=== PATIENT | male | born 1930 | race Caucasian/White ===

== ENCOUNTER → 2016-07-03 | Outpatient (CLI) | payer MEDICARE, OTHER ==
[~2016-07-03] MED LIST: ASPI-557 PO; CLOP75TA PO; INSU100V13 SQ; INSU100V8 SQ; INSU3INS3 SQ; LISI-625 PO; METF500T4 PO; METO25TA6 PO; OMEG1CAP79 PO; ONDA4TAB10 PO; PANT40TA27 PO; RANI150T12 PO; SIMV20TA6 PO; SUCR1TAB PO; VIT1CAPS21 PO; [UNRECOGNIZED DRUG - CODE] PO; [UNRECOGNIZED DRUG - REMARK]
--- NOTE | 2016-07-03 10:48 | DI ---
Indication: ITS.REASON: M25.511 PAIN IN RIGHT SHOULDER; M25.521 PAIN IN RIGHT ELBOW PROCEDURE: SHOULDER RIGHT 3 VIEWS: Encounter: Initial Comparison: None Findings: There is no acute fracture, dislocation or malalignment identified. Mild degenerative change in the acromioclavicular joint. Glenohumeral joint space is maintained. Calcifications along the expected region of the supraspinatus tendon. Impression: No acute osseous abnormality. Possible calcific tendinitis. .
--- NOTE | 2016-07-03 10:50 | DI ---
Indication: ITS.REASON: M25.511 PAIN IN RIGHT SHOULDER; M25.521 PAIN IN RIGHT ELBOW PROCEDURE: ELBOW RIGHT 3 VIEW: Encounter: Initial Comparison: None Findings: There is cortical irregularity of the lateral humeral epicondyle seen on the AP view. No additional area concerning for acute fracture. No dislocation. No joint effusion. Impression: Cortical irregularity of the lateral humeral epicondyle could be due to acute or old trauma. .
== END ==
LOC: IMA 10:08
PROVIDERS: ATTEND Internal Medicine
DX: M25.511 Pain in right shoulder (principal); M25.512 Pain in left shoulder; R93.7 Abnormal findings on diagnostic imaging of other parts of musculoskeletal system

== ENCOUNTER 2017-02-10 18:18 | Observation (INO) ==
[2017-02-10] MEDS ORDERED: SALINE FLUSH 10ml SYRINGE IVF PRN (18:38)
--- OUTSIDE RECORDS SUMMARY | 2017-02-10 18:46 | External Medical Summary ---
:1930 Author Organization [employer] Care Team Providers Name Role Phone Nathan Arnold Provider Role Unavailable Allergies No Known Allergies Problems Problem Type Condition Code Onset Dates Condition Status Problem Anemia, unspecified D64.9 Active Problem Coronary atherosclerosis of 414.00 Active unspecified type of vessel, [place] or graft Problem Hypertension, benign 401.1 Active Problem Type 2 diabetes mellitus without E11.9 Active complications Problem Spinal stenosis, lumbar region M48.06 Active Problem Gastro-esophageal reflux disease K21.9 Active without esophagitis Problem Pain in right ankle and joints of M25.571 Active right foot Problem Mixed hyperlipidemia 272.2 Active Problem Mixed hyperlipidemia 272.2 Active Problem Atherosclerotic heart disease of I25.10 Active [place] coronary artery without angina pectoris Problem Diabetes Mellitus Type 2, not 250.00 Active stated as uncontrolled Medications Medication Code Code Instructions Start End Date Status Dosage System Date Simvastatin [facility] 57780147202 20 MG Orally 1 tablet in Once a day the evening Results No Known Results Summary Purpose [employer] Submission
--- OUTSIDE RECORDS SUMMARY | 2017-02-10 18:46 | External Medical Summary ---
:1930 Author Organization [employer]Clinical[employer] Care Team Providers Name Role Phone Nathan Arnold Provider Role Unavailable Allergies No Known Allergies Problems Problem Type Condition Code Onset Dates Condition Status Problem Anemia, unspecified D64.9 Active Problem Coronary atherosclerosis of 414.00 Active unspecified type of vessel, [place] or graft Problem Hypertension, benign 401.1 Active Problem Type 2 diabetes mellitus without E11.9 Active complications Problem Spinal stenosis, lumbar region M48.06 Active Problem Gastro-esophageal reflux disease K21.9 Active without esophagitis Problem Pain in right ankle and joints of M25.571 Active right foot Problem Mixed hyperlipidemia 272.2 Active Problem Mixed hyperlipidemia 272.2 Active Problem Atherosclerotic heart disease of I25.10 Active [place] coronary artery without angina pectoris Problem Diabetes Mellitus Type 2, not 250.00 Active stated as uncontrolled Medications Medication Code System Code Instructions Start Date End Date Status Dosage Protonix [facility] [address] 40 MG Orally Once June 26, 1 tablet -81 a day 2015 Results No Known Results Summary Purpose [facility] [employer] Submission
--- OUTSIDE RECORDS SUMMARY | 2017-02-10 18:46 | External Medical Summary ---
:1930 Author Organization eClinicalWorks Care Team Providers Name Role Phone Nathan Arnold Provider Role Unavailable Allergies, Adverse Reactions, Alerts Substance Reaction Event Type N.K.D.A. 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 Problem Coronary atherosclerosis of 414.00 Active unspecified type of vessel, [place] or graft Problem Hypertension, benign 401.1 Active Medications Medication Code Code Instructions Start End Date Status [place] [address]21 100 MG Orally Nov 03, Dec 01, 1 capsule as - Three times a 2014 2014 needed day as needed for cough/[place] [address]-85 20 MG Orally 1 tablet in 54-10 Once [place] [address]-84 500 MG Orally 1 tablet 48-01 [place] [address]-48 325 (65 Fe) MG 1 tablet 75-78 Orally Once [place] 70/30 [place] [address]-86 (70-30) 100 15 units 37-11 UNIT/ML [place] [address]-97 108 (90 Base) Nov 03, 1 to 2 puffs 82-20 MCG/ACT 2014 as needed Inhalation every for 6 hrs cough/wheezi ng/[place] [address]-19 100 UNIT/ML Oct 11, 5 units 39-10 Subcutaneous TID 2014 [place] [address]-54 5 MG Orally Once 1 tablet 05-01 [place] [address]-45 40 MG Orally 1 capsule 12-01 Once a day FreeStyle Lite [facility] 79144-03 1 In Vitro four Oct 05, as directed Test 819 times a day 2014 ABC Plus [facility] 87201-10 Orally not defined 070 Lantus [facility] 42581-84 100 UNIT/ML 20 units 20-33 Subcutaneous [place] [address]-21 750 MG Orally Nov 03, Nov 08, 1 tablet 30-10 every 24 hrs 2014 2014 Fish Oil [facility] 39511-89 1000 MG Orally 1 capsule 71-40 Once a day Clopidogrel [facility] 14905-71 75 MG Orally Sep 29, 1 tablet Bisulfate 14-05 Once a day 2014 Aspirin [facility] 63998-04 81 MG Orally 1 tablet 74-68 Once a day Lisinopril [facility] 66293-26 5 MG Orally Once 1 tablet 66-01 a day Ocuvite [facility] 95865-13 Orally not defined 87-60 Procedures Procedure Coding System Code Date OFFICE VISIT, EST-MOD. COMPLEXITY (25 MIN) CPT-4 15885 Nov 03, 2014 [facility] visit Established Patient CPT-4 G0467 Nov 03, 2014 Vital Signs Date/Time: Nov 03, 2014 Height 69 in Weight 157.12 lbs Temperature 97.6 F Blood Pressure Diastolic 58 mm Hg Blood Pressure Systolic 114 mm Hg Cardiac Monitoring Heart Rate 70 /min BMI 23.20 Index Oximetry 98 % Respiratory Rate 16 /min Results No Known Results Summary Purpose [employer]ClinicalWorks Submission
--- OUTSIDE RECORDS SUMMARY | 2017-02-10 18:46 | External Medical Summary ---
:1930 Author Organization eClinicalWorks Care Team Providers Name Role Phone Nathan Arnold Provider Role Unavailable Allergies No Known Allergies Problems Problem Type Condition Code Onset Dates Condition Status Problem Anemia, unspecified D64.9 Active Problem Coronary atherosclerosis of 414.00 Active unspecified type of vessel, [place] or graft Problem Hypertension, benign 401.1 Active Problem Type 2 diabetes mellitus without E11.9 Active complications Problem Spinal stenosis, lumbar region M48.06 Active Problem Gastro-esophageal reflux disease K21.9 Active without esophagitis Problem Pain in right ankle and joints of M25.571 Active right foot Problem Mixed hyperlipidemia 272.2 Active Problem Mixed hyperlipidemia 272.2 Active Problem Atherosclerotic heart disease of I25.10 Active [place] coronary artery without angina pectoris Problem Diabetes Mellitus Type 2, not 250.00 Active stated as uncontrolled Medications Medication Code Code Instructions Start End Status Dosage System Date Date Ventolin HFA [facility] [address]-75 108 (90 Base) Nov 03, 1 to 2 MCG/ACT 2014 puffs as Inhalation needed for every 6 hrs cough/wheez ing/soa. Fish Oil [facility] [address]-30 1000 MG Orally 1 capsule Once a day Metoprolol [facility] [address]-06 25 MG Orally 1 tablet Tartrate Once a day Gabapentin [facility] [address]-43 300 MG Orally 1 capsule Three times a day Ocuvite [facility] [address]-78 Orally not defined Lantus [facility] [address]-32 100 UNIT/ML Sep 22, 10 units SoloStar Subcutaneous 2015 Once a day NovoLog [facility] [address]-32 100 UNIT/ML Oct 11, up to 12 Flexpen Subcutaneous 2014 units per TID with meals day as DX E11.9 directed Simvastatin [facility] 61182667740 20 MG Orally 1 tablet in Once a day the evening Protonix [facility] [address]-01 40 MG Orally June 26, 1 tablet Once a day 2015 Metformin HCl [facility] [address]-29 500 MG Orally 2 tablets Once a day in the am and 1 tablet in the pm Ondansetron [facility] [address]-48 4 MG Orally not defined Aspirin [facility] [address]-13 81 MG Orally 1 tablet Once a day Lisinopril [facility] [address]-32 5 MG Orally 1 tablet Once a day FreeStyle Lite [facility] 26044691300 TEST BLOOD Test SUGAR 2 TIMES DAILY DIRECTED - E11.65 Ferrous [facility] [address]-82 325 (65 Fe) MG 1 tablet Sulfate Orally Once a day Clopidogrel [facility] [address]-48 75 MG Orally Sep 29, 1 tablet Bisulfate Once a day 2014 ABC Plus [facility] [address]37 Orally not defined Lantus [facility] 58922853754 100 UNIT/ML INJECT 20U AT BEDTIME Results No Known Results Summary Purpose [employer]ClinicalWorks Submission
--- OUTSIDE RECORDS SUMMARY | 2017-02-10 18:46 | External Medical Summary ---
:1930 Author Organization eClinicalWorks Care Team Providers Name Role Phone Nathan Arnold Provider Role Unavailable Allergies No Known Allergies Problems Problem Type Condition Code Onset Dates Condition Status Problem Anemia, unspecified D64.9 Active Problem Coronary atherosclerosis of 414.00 Active unspecified type of vessel, [place] or graft Problem Hypertension, benign 401.1 Active Problem Type 2 diabetes mellitus without E11.9 Active complications Problem Spinal stenosis, lumbar region M48.06 Active Problem Gastro-esophageal reflux disease K21.9 Active without esophagitis Problem Pain in right ankle and joints of M25.571 Active right foot Problem Mixed hyperlipidemia 272.2 Active Problem Mixed hyperlipidemia 272.2 Active Problem Atherosclerotic heart disease of I25.10 Active [place] coronary artery without angina pectoris Problem Diabetes Mellitus Type 2, not 250.00 Active stated as uncontrolled Medications No Known Medications Results No Known Results Summary Purpose [employer]ClinicalWorks Submission
--- OUTSIDE RECORDS SUMMARY | 2017-02-10 18:46 | External Medical Summary ---
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
--- OUTSIDE RECORDS SUMMARY | 2017-02-10 18:46 | External Medical Summary ---
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 Problem Hematemesis, K92.0 Active 2008794 presence of nausea not specified ALLERGIES No Information SOCIAL HISTORY Never Assessed PLAN OF CARE VITAL SIGNS MEDICATIONS Medication Instructions Dosage Frequency Start End Duration Status Date Date Metformin HCl 12h Active Lidocaine Active Simvastatin 20 Orally Once a 1 tablet in 24h Active MG day the evening NovoLog 100 Subcutaneous ac 12 units Active UNIT/ML meals Fish Oil 1200 MG Orally Once a 1 capsule 24h Active day Ranitidine HCl Orally Once a 1 tablet at 24h Jan, day(s) Active 150 MG day bedtime 2016 Clopidogrel Orally Once a 1 tablet 24h Active Bisulfate 75 MG day Lantus 100 18 units am Active UNIT/ML 6 units pm Iron 325 (65 Fe) Orally Once a 1 tablet 24h Active MG day Carafate 1 GM Orally as needed 1 tablet on Active an empty stomach Lisinopril 5 MG Orally Once a 1 tablet 24h Active day Ocuvite - Orally daily 24h Active Pantoprazole Orally Once a 1 tablet 24h Active Sodium 40 MG day Ranitidine HCl Orally at 1 capsule 30 days Active 150 MG bedtime Metoprolol Orally Twice a 1 tablet 12h Active Tartrate 25 MG day with food RESULTS No Results PROCEDURES No Known procedures IMMUNIZATIONS No Known Immunizations MEDICAL (GENERAL) HISTORY Type Description Date Medical History Coronary Arteriosclerosis s/p stents x 3 and s/p bypass surgery Medical History DM type II Medical History Hypertension Medical History GERD Medical History Lymphoma Medical History NM Medical History Thrombocytopenic disorder
--- OUTSIDE RECORDS SUMMARY | 2017-02-10 18:46 | External Medical Summary ---
:1930 Author Organization [employer]ClinicalWorks Care Team Providers Name Role Phone Nathan Arnold Provider Role Unavailable Allergies No Known Allergies Problems Problem Type Condition Code Onset Dates Condition Status Problem Anemia, unspecified D64.9 Active Problem Coronary atherosclerosis of 414.00 Active unspecified type of vessel, [place] or graft Problem Hypertension, benign 401.1 Active Problem Type 2 diabetes mellitus without E11.9 Active complications Problem Spinal stenosis, lumbar region M48.06 Active Problem Gastro-esophageal reflux disease K21.9 Active without esophagitis Problem Pain in right ankle and joints of M25.571 Active right foot Problem Mixed hyperlipidemia 272.2 Active Problem Mixed hyperlipidemia 272.2 Active Problem Atherosclerotic heart disease of I25.10 Active [place] coronary artery without angina pectoris Problem Diabetes Mellitus Type 2, not 250.00 Active stated as uncontrolled Medications No Known Medications Results No Known Results Summary Purpose [employer] Submission
--- OUTSIDE RECORDS SUMMARY | 2017-02-10 18:46 | External Medical Summary ---
:1930 Author Organization [employer]ClinicalWorks Care Team Providers Name Role Phone Nathan Arnold Provider Role Unavailable Allergies No Known Allergies Problems Problem Type Condition ICD-9 Code Onset Dates Condition Status Problem Mixed hyperlipidemia 272.2 Active Problem Mixed hyperlipidemia 272.2 Active Problem Unspecified anemia 285.9 Active Problem Diabetes Mellitus Type 2, not 250.00 Active stated as uncontrolled Problem Coronary atherosclerosis of 414.00 Active unspecified type of vessel, [place] or graft Problem Hypertension, benign 401.1 Active Medications No Known Medications Results No Known Results Summary Purpose [employer]ClinicalWorks Submission
--- OUTSIDE RECORDS SUMMARY | 2017-02-10 18:46 | External Medical Summary ---
:1930 Author Organization [employer]ClinicalWorks Care Team Providers Name Role Phone Nathan Arnold Provider Role Unavailable Allergies, Adverse Reactions, Alerts Substance Reaction Event Type N.K.D.A. Info Not Available Non Drug Allergy Problems Problem Type Condition Code Onset Dates Condition Status Problem Anemia, unspecified D64.9 Active Problem Coronary atherosclerosis of 414.00 Active unspecified type of vessel, [place] or graft Problem Hypertension, benign 401.1 Active Problem Spinal stenosis, lumbar region M48.06 Active Problem Gastro-esophageal reflux disease K21.9 Active without esophagitis Problem Pain in right ankle and joints of M25.571 Active right foot Problem Mixed hyperlipidemia 272.2 Active Problem Mixed hyperlipidemia 272.2 Active Problem Atherosclerotic heart disease of I25.10 Active [place] coronary artery without angina pectoris Problem Diabetes Mellitus Type 2, not 250.00 Active stated as uncontrolled Assessment Constipation, unspecified K59.00 Active Assessment Spinal stenosis, lumbar region M48.06 Active Assessment Anemia, unspecified D64.9 Active Assessment Nausea R11.0 Active Problem Type 2 diabetes mellitus without E11.9 Active complications Medications Medication Code Code Instructions Start End Status Dosage System Date Date Protonix [facility] [address]-84 40 MG Orally June 26, 1 tablet Once a day [address] [facility] [address]-59 325 (65 Fe) MG 1 tablet Sulfate Orally Once a day Ondansetron [facility] [address]-69 4 MG Orally not defined ABC Plus [facility] [address] Orally not defined Lantus [facility] [address]-59 100 UNIT/ML Sep 22, units SoloStar Subcutaneous 2015 Once a day Gabapentin [facility] [address]-48 300 MG Orally 1 capsule Three times a day Lisinopril [facility] [address]-87 5 MG Orally 1 tablet Once a day Lantus [facility] 56615944948 100 UNIT/ML INJECT 20U AT BEDTIME Metformin HCl [facility] [address]-40 500 MG Orally 2 tablets Once a day in the am and 1 tablet in the pm Clopidogrel [facility] [address]-06 75 MG Orally Sep 29, 1 tablet Bisulfate Once a day 2014 Ventolin HFA [facility] [address]-90 108 (90 Base) Nov 03, 1 to 2 MCG/ACT 2015 puffs as Inhalation needed for every 6 hrs cough/wheez ing/soa. Metoprolol [facility] [address]-61 25 MG Orally 1 tablet Tartrate Once a day Simvastatin [facility] 43257986546 20 MG Orally 1 tablet in Once a day the evening Fish Oil [facility] [address]-58 1000 MG Orally 1 capsule Once a day FreeStyle Lite [facility] 60795330608 TEST BLOOD Test SUGAR 2 TIMES DAILY DIRECTED - E11.[address] [facility] [address]-89 Orally not defined Aspirin [facility] [address]-94 81 MG Orally 1 tablet Once a day NovoLog [facility] [address]-20 100 UNIT/ML Oct 11, up to 12 Flexpen Subcutaneous 2015 units per TID with meals day as DX E11.9 directed Procedures Procedure Coding System Code Date OFFICE VISIT, EST-LOW COMPLEXITY (15 MIN.) CPT-4 02553 Oct 11, 2015 [facility] visit Established Patient CPT-4 G0467 Oct 11, 2015 Vital Signs Date/Time: Oct 11, 2015 Temperature 98.0 F Height 69 in Weight 147 lbs Blood Pressure Diastolic 68 mm Hg Blood Pressure Systolic 118 mm Hg Cardiac Monitoring Heart Rate 70 /min BMI 21.71 Index Respiratory Rate 16 /min Results No Known Results Summary Purpose eClinicalWorks Submission
--- OUTSIDE RECORDS SUMMARY | 2017-02-10 18:46 | External Medical Summary ---
:1930 Author Organization eClinicalWorks Care Team Providers Name Role Phone Nathan Arnold Provider Role Unavailable Allergies No Known Allergies Problems Problem Type Condition Code Onset Dates Condition Status Problem Anemia, unspecified D64.9 Active Problem Coronary atherosclerosis of 414.00 Active unspecified type of vessel, [place] or graft Problem Hypertension, benign 401.1 Active Assessment Anemia, unspecified D64.9 Active Problem Type 2 diabetes mellitus without E11.9 Active complications Problem Spinal stenosis, lumbar region M48.06 Active Problem Gastro-esophageal reflux disease K21.9 Active without esophagitis Problem Pain in right ankle and joints of M25.571 Active right foot Problem Mixed hyperlipidemia 272.2 Active Problem Mixed hyperlipidemia 272.2 Active Problem Atherosclerotic heart disease of I25.10 Active [place] coronary artery without angina pectoris Problem Diabetes Mellitus Type 2, not 250.00 Active stated as uncontrolled Medications Medication Code Code Instructions Start End Status Dosage System Date Date Aspirin [facility] [address]-86 81 MG Orally 1 tablet Once a day Ventolin HFA [facility] [address]-87 108 (90 Base) Sept 1 to 2 puffs MCG/ACT 23, as needed for Inhalation 2014 cough/wheezing every 6 hrs /soa. Fish Oil [facility] [address]-91 1000 MG Orally 1 capsule Once a day Protonix [facility] [address]-04 40 MG Orally June 26, 1 tablet Once a day 2015 FreeStyle Lite [facility] [id number] TEST BLOOD Test SUGAR 2 TIMES DAILY DIRECTED - E11.65 Ocuvite [facility] [address]-06 Orally not defined Lantus [facility] [address]-13 100 UNIT/ML Sep 22, units SoloStar Subcutaneous 2015 Once a day ABC Plus [facility] 139[address]25 Orally not defined Metoprolol [facility] [address]-06 25 MG Orally 1 tablet Tartrate Once a day Ferrous [facility] [address]-50 325 (65 Fe) MG 1 tablet Sulfate Orally Once a day Ondansetron [facility] [address]-79 4 MG Orally not defined Gabapentin [facility] [address]-86 300 MG Orally 1 capsule Three times a day Colace [facility] [address]-71 100 MG Orally July 1 capsule as every 12 09, 07, needed for hours. 2015 2015 constipation Lisinopril [facility] [address]-19 5 MG Orally 1 tablet Once a day Metformin HCl [facility] [address]-56 500 MG Orally 2 tablets in Once a day the am and 1 tablet in the pm Simvastatin [facility] 87888265365 20 MG Orally 1 tablet in Once a day the evening Clopidogrel [facility] [address]-00 75 MG Orally Sep 29, 1 tablet Bisulfate Once a day 2014 NovoLog [facility] [address]-28 100 UNIT/ML Oct 11, up to 12 units Flexpen Subcutaneous 2014 per day as TID with meals directed DX E11.9 Lantus [facility] 66128366720 100 UNIT/ML INJECT 20U AT BEDTIME Procedures Procedure Coding System Code Date COMPLETE CBC W/AUTO DIFF WBC CPT-4 51692 Oct 11, 2015 Results No Known Results Summary Purpose eClinicalWorks Submission
--- OUTSIDE RECORDS SUMMARY | 2017-02-10 18:47 | External Medical Summary ---
[...] of 414.00 Active unspecified type of vessel, [place] or graft Problem Hypertension, benign 401.1 Active Medications Medication Code System Code Instructions Start End Date Status Dosage Date Clopidogrel [facility] 9[address]-084 75 MG Orally Sep 29, tablet Bisulfate 4-05 Once a day 2014 Results No Known Results Summary Purpose [employer]ClinicalWorks Submission
--- OUTSIDE RECORDS SUMMARY | 2017-02-10 18:47 | External Medical Summary ---
:1930 Author Organization eClinicalWorks Care Team Providers Name Role Phone Nathan Arnold Provider Role Unavailable Allergies No Known Allergies Problems Problem Type Condition Code Onset Dates Condition Status Problem Anemia, unspecified D64.9 Active Problem Coronary atherosclerosis of 414.00 Active unspecified type of vessel, [place] or graft Problem Hypertension, benign 401.1 Active Problem Type 2 diabetes mellitus without E11.9 Active complications Problem Spinal stenosis, lumbar region M48.06 Active Problem Gastro-esophageal reflux disease K21.9 Active without esophagitis Problem Pain in right ankle and joints of M25.571 Active right foot Problem Mixed hyperlipidemia 272.2 Active Problem Mixed hyperlipidemia 272.2 Active Problem Atherosclerotic heart disease of I25.10 Active [place] coronary artery without angina pectoris Problem Diabetes Mellitus Type 2, not 250.00 Active stated as uncontrolled Medications No Known Medications Results No Known Results Summary Purpose [employer]ClinicalWorks Submission
--- OUTSIDE RECORDS SUMMARY | 2017-02-10 18:47 | External Medical Summary ---
:1930 Author Organization eClinicalWorks Care Team Providers Name Role Phone Nathan Arnold Provider Role Unavailable Allergies, Adverse Reactions, Alerts Substance Reaction Event Type N.K.D.A. 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, unilateral or unspecified, (not specified as recurrent) Problem Mixed hyperlipidemia 272.2 Active Problem Mixed hyperlipidemia 272.2 Active Problem Unspecified anemia 285.9 Active Problem Diabetes Mellitus Type 2, not 250.00 Active stated as uncontrolled Assessment Unspecified anemia 285.9 Active Problem Coronary atherosclerosis of 414.00 Active unspecified type of vessel, [place] or graft Problem Hypertension, benign 401.1 Active Medications Medication Code Code Instructions Start End Date Status Dosage System Date Simvastatin [facility] 85174-08 20 MG Orally 1 tablet in 54-10 Once a day the evening Omeprazole [facility] 29815-48 40 MG Orally 1 capsule 12-01 Once a day Novolin 70/30 [facility] 39389-53 (70-30) 100 15 units 37-11 UNIT/ML Subcutaneous TID Ocuvite [facility] 13355-11 Orally not defined 87-60 Clopidogrel [facility] 29865-61 25 mg Orally 1 tablet Bisulfate 14-05 Once a day Aspirin [facility] 82070-10 81 MG Orally 1 tablet 74-68 Once a day Metformin HCl [facility] 42961-79 500 MG Orally 1 tablet 48-01 Twice a day with meals ABC Plus [facility] 41846-29 Orally not defined 070 Fish Oil [facility] 66524-39 1000 MG Orally 1 capsule 71-40 Once a day Lantus [facility] 01617-30 100 UNIT/ML 20 units 20-33 Subcutaneous Once a day at bedtime Bystolic [facility] 09780-77 5 MG Orally Once 1 tablet 05-01 a day Lisinopril [facility] 48850-94 5 MG Orally Once 1 tablet 66-01 a day Procedures Procedure Coding System Code Date OFFICE VISIT, EST-LOW COMPLEXITY (15 MIN.) CPT-4 70196 Sep 20, 2014 [facility] visit Established Patient CPT-4 G0467 Sep 20, 2014 Vital Signs Date/Time: Sep 20, 2014 Height 69 in Weight 166.8 lbs Temperature 98.0 F Blood Pressure Diastolic 52 mm Hg Blood Pressure Systolic 118 mm Hg Cardiac Monitoring Heart Rate 64 /min BMI 24.63 Index Oximetry 97 % Respiratory Rate 16 /min Results No Known Results Summary Purpose eClinicalWorks Submission
--- OUTSIDE RECORDS SUMMARY | 2017-02-10 18:47 | External Medical Summary ---
[...] of 414.00 Active unspecified type of vessel, [place] or graft Problem Hypertension, benign 401.1 Active Medications Medication Code Code Instructions Start End Date Status Dosage System Date FreeStyle Lite [facility] 58235-55 1 In Vitro four Oct 05, as directed Test 819 times a day [address]ep[address] [facility] 56071-57 40 MG Orally 1 capsule 01-11 Once a day Results No Known Results Summary Purpose eClinicalWorks Submission
--- OUTSIDE RECORDS SUMMARY | 2017-02-10 18:47 | External Medical Summary ---
:1930 Author Organization [employer] Care Team Providers Name Role Phone Nathan Arnold Provider Role Unavailable Allergies No Known Allergies Problems Problem Type Condition Code Onset Dates Condition Status Problem Anemia, unspecified D64.9 Active Problem Coronary atherosclerosis of 414.00 Active unspecified type of vessel, [place] or graft Problem Hypertension, benign 401.1 Active Problem Spinal stenosis, lumbar region M48.06 Active Problem Gastro-esophageal reflux disease K21.9 Active without esophagitis Problem Pain in right ankle and joints of M25.571 Active right foot Problem Mixed hyperlipidemia 272.2 Active Problem Mixed hyperlipidemia 272.2 Active Problem Atherosclerotic heart disease of I25.10 Active [place] coronary artery without angina pectoris Problem Diabetes Mellitus Type 2, not 250.00 Active stated as uncontrolled Assessment Hyperkalemia E87.5 Active Assessment Anemia, unspecified D64.9 Active Problem Type 2 diabetes mellitus without E11.9 Active complications Medications No Known Medications Results No Known Results Summary Purpose [employer] Submission
--- OUTSIDE RECORDS SUMMARY | 2017-02-10 18:47 | External Medical Summary ---
:1930 Author Organization eClinicalWorks Care Team Providers Name Role Phone Nathan Arnold Provider Role Unavailable Allergies No Known Allergies Problems Problem Type Condition Code Onset Dates Condition Status Problem Mixed hyperlipidemia 272.2 Active Problem Mixed hyperlipidemia 272.2 Active Problem Diabetes Mellitus Type 2, not stated 250.00 Active as uncontrolled Problem Anemia, unspecified D64.9 Active Problem Type 2 diabetes mellitus without E11.9 Active complications Problem Coronary atherosclerosis of 414.00 Active unspecified type of vessel, [place] or graft Problem Hypertension, benign 401.1 Active Medications Medication Code Code Instructions Start End Date Status Dosage System Date NovoLog Flexpen [facility] 94956-37 100 UNIT/ML Oct 11, up to 12 39-10 Subcutaneous TID 2015 units per with meals DX day as E11.9 directed Results No Known Results Summary Purpose eClinicalWorks Submission
--- OUTSIDE RECORDS SUMMARY | 2017-02-10 18:47 | External Medical Summary ---
:1930 Author Organization eClinicalWorks Care Team Providers Name Role Phone Nathan Arnold Provider Role Unavailable Allergies No Known Allergies Problems Problem Type Condition Code Onset Dates Condition Status Problem Anemia, unspecified D64.9 Active Problem Coronary atherosclerosis of 414.00 Active unspecified type of vessel, [place] or graft Problem Hypertension, benign 401.1 Active Problem Type 2 diabetes mellitus without E11.9 Active complications Problem Spinal stenosis, lumbar region M48.06 Active Problem Gastro-esophageal reflux disease K21.9 Active without esophagitis Problem Pain in right ankle and joints of M25.571 Active right foot Problem Mixed hyperlipidemia 272.2 Active Problem Mixed hyperlipidemia 272.2 Active Problem Atherosclerotic heart disease of I25.10 Active [place] coronary artery without angina pectoris Problem Diabetes Mellitus Type 2, not 250.00 Active stated as uncontrolled Medications No Known Medications Results No Known Results Summary Purpose eClinicalWorks Submission
--- OUTSIDE RECORDS SUMMARY | 2017-02-10 18:47 | External Medical Summary ---
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 Unknown Non Drug Allergy Mar, Unknown SOCIAL HISTORY No smoking Hx information available PLAN OF CARE VITAL SIGNS Height 69 in 2016-03-27 Weight 163. lbs 2016-03-27 Heart Rate 78 /min 2016-03-27 Respiratory Rate 18 /min 2016-03-27 BMI 24.07 kg/m2 2016-03-27 Blood pressure systolic 116 mm Hg 2016-03-27 Blood pressure diastolic 72 mm Hg 2016-03-27 MEDICATIONS Medication Instructions Dosage Frequency Start End Duration Status Date Date Pantoprazole Orally Once a 1 tablet 24h Active Sodium 40 MG day Fish Oil 1200 MG Orally Once a 1 capsule 24h Active day Metformin HCl Active Simvastatin 20 Orally Once a 1 tablet in 24h Active MG day the evening Ondansetron 4 MG Orally every 8 1-2 tablets Active hrs prn on the tongue and allow to dissolve Clopidogrel Orally Once a 1 tablet 24h Active Bisulfate 75 MG day Sucralfate 1 GM Orally Twice a 1 tablet on 12h Active day an empty stomach Lidocaine Active Iron 325 (65 Fe) Orally Once a 1 tablet 24h Active MG day Ocuvite - Active Ranitidine HCl Orally Once a 1 capsule at 24h Active 150 MG day bedtime NovoLog 100 12 units Active UNIT/ML Lantus 100 18 units am Active UNIT/ML 6 units pm Lisinopril 5 MG Active Metoprolol Orally Twice a 1 tablet 12h Active Tartrate 25 MG day with food Carafate 1 GM Orally Twice a 1 tablet on 12h Active day an empty stomach RESULTS No Results PROCEDURES Procedure Date Ordered Related Diagnosis Body Site Office Visit, New Pt., Level 4 Mar 27, 2016 IMMUNIZATIONS No Known Immunizations
--- OUTSIDE RECORDS SUMMARY | 2017-02-10 18:47 | External Medical Summary ---
[...] of 414.00 Active unspecified type of vessel, [place] or graft Problem Hypertension, benign 401.1 Active Medications No Known Medications Results No Known Results Summary Purpose eClinicalWorks Submission
--- OUTSIDE RECORDS SUMMARY | 2017-02-10 18:47 | External Medical Summary ---
:1930 Author Organization eClinicalWorks Care Team Providers Name Role Phone Fouzia Barreto Provider Role Unavailable Allergies, Adverse Reactions, Alerts Substance Reaction Event Type N.K.D.A. Info Not Available Non Drug Allergy Problems Problem Type Condition Code Onset Dates Condition Status Problem Anemia, unspecified D64.9 Active Problem Coronary atherosclerosis of 414.00 Active unspecified type of vessel, [place] or graft Problem Hypertension, benign 401.1 Active Assessment Musculoskeletal pain M79.1 Active Problem Type 2 diabetes mellitus without E11.9 Active complications Problem Spinal stenosis, lumbar region M48.06 Active Problem Gastro-esophageal reflux disease K21.9 Active without esophagitis Problem Pain in right ankle and joints of M25.571 Active right foot Problem Mixed hyperlipidemia 272.2 Active Problem Mixed hyperlipidemia 272.2 Active Problem Atherosclerotic heart disease of I25.10 Active [place] coronary artery without angina pectoris Problem Diabetes Mellitus Type 2, not 250.00 Active stated as uncontrolled Medications Medication Code Code Instructions Start End Status Dosage System Date Fish Oil [facility] [address]-22 1000 MG Orally 1 capsule Once a day Ventolin HFA [facility] [address]-96 108 (90 Base) Nov 03, 1 to 2 MCG/ACT 2014 puffs as Inhalation needed for every 6 hrs cough/wheez ing/soa. Ferrous [facility] [address]-67 325 (65 Fe) MG 1 tablet Sulfate Orally Once a day FreeStyle Lite [facility] [id number] TEST BLOOD Test SUGAR 2 TIMES DAILY DIRECTED - E11.65 Ocuvite [facility] [address]-64 Orally not defined Metoprolol [facility] [address]-60 25 MG Orally 1 tablet Tartrate Once a day NovoLog [facility] [address]-05 100 UNIT/ML Oct 11, up to 12 Flexpen Subcutaneous 2015 units per TID with meals day as DX E11.9 directed Simvastatin [facility] 93612754328 20 MG Orally 1 tablet in Once a day the evening Gabapentin [facility] [address]-47 300 MG Orally 1 capsule Three times a day Ondansetron [facility] [address]-08 4 MG Orally not defined Aspirin [facility] [address]-03 81 MG Orally 1 tablet Once a day Lisinopril [facility] [address]-85 5 MG Orally 1 tablet Once a day Lantus [facility] [address]-33 100 UNIT/ML INJECT 10U 18U in the AT BEDTIME morning Protonix [facility] [address]-48 40 MG Orally June 26, 1 tablet Once a day 2015 ABC Plus [facility] [address]-91807 Orally not defined Clopidogrel [facility] [address]-57 75 MG Orally Sep 29, 1 tablet Bisulfate Once a day 2014 Metformin HCl [facility] [address]-79 500 MG Orally 2 tablets Once a day in the am and 1 tablet in the pm Procedures Procedure Coding System Code Date OFFICE VISIT, EST-LOW COMPLEXITY (15 MIN.) CPT-4 54630 Jan 02, 2016 [facility] visit Established Patient CPT-4 G0467 Jan 02, 2016 Vital Signs Date/Time: Jan 02, 2016 Temperature 97.6 F Height 69 in Weight 160.6 lbs Blood Pressure Diastolic 70 mm Hg Blood Pressure Systolic 116 mm Hg Cardiac Monitoring Heart Rate 66 /min BMI 23.71 Index Oximetry 97 % Results No Known Results Summary Purpose eClinicalWorks Submission
--- OUTSIDE RECORDS SUMMARY | 2017-02-10 18:47 | External Medical Summary ---
:1930 Author Organization eClinicalWorks Care Team Providers Name Role Phone Nathan Arnold Provider Role Unavailable Allergies No Known Allergies Problems Problem Type Condition Code Onset Dates Condition Status Problem Mixed hyperlipidemia 272.2 Active Problem Coronary atherosclerosis of 414.00 Active unspecified type of vessel, [place] or graft Problem Mixed hyperlipidemia 272.2 Active Problem Anemia, unspecified D64.9 Active Problem Hypertension, benign 401.1 Active Problem Diabetes Mellitus Type 2, not stated 250.00 Active as uncontrolled Medications No Known Medications Results No Known Results Summary Purpose eClinicalWorks Submission
--- OUTSIDE RECORDS SUMMARY | 2017-02-10 18:47 | External Medical Summary ---
:1930 Author Organization eClinicalWorks Care Team Providers Name Role Phone Vivian Asher Provider Role Unavailable Allergies, Adverse Reactions, Alerts Substance Reaction Event Type N.K.D.A. Info Not Available Non Drug Allergy Problems Problem Type Condition Code Onset Dates Condition Status Problem Anemia, unspecified D64.9 Active Problem Coronary atherosclerosis of 414.00 Active unspecified type of vessel, [place] or graft Problem Hypertension, benign 401.1 Active Assessment Pain in right ankle and joints of M25.571 Active right foot Problem Type 2 diabetes mellitus without E11.9 Active complications Problem Spinal stenosis, lumbar region M48.06 Active Problem Gastro-esophageal reflux disease K21.9 Active without esophagitis Problem Pain in right ankle and joints of M25.571 Active right foot Problem Mixed hyperlipidemia 272.2 Active Problem Mixed hyperlipidemia 272.2 Active Problem Atherosclerotic heart disease of I25.10 Active [place] coronary artery without angina pectoris Problem Diabetes Mellitus Type 2, not 250.00 Active stated as uncontrolled Medications Medication Code Code Instructions Start End Status Dosage System Date FreeStyle Lite [facility] [id number] TEST BLOOD Test SUGAR 2 TIMES DAILY DIRECTED - E11.65 Bystolic [facility] [address]-35 5 MG Orally 1 tablet Once a day Lantus [facility] 60636780698 100 UNIT/ML INJECT 20U AT BEDTIME Colace [facility] [address]-32 100 MG Orally July 1 capsule as every 12 09, 07, needed for hours. 2015 2015 constipation Fish Oil [facility] [address]-87 1000 MG Orally 1 capsule Once a day Lidoderm [facility] [address]-40 5 % Externally August 11 patch to Once a day 05, intact skin 2015 remove after 12 hours. cover most painful areas. Ventolin HFA [facility] [address]-99 108 (90 Base) Sept 1 to 2 puffs MCG/ACT 23, as needed for Inhalation 2014 cough/wheezing every 6 hrs /soa. Clopidogrel [facility] [address]-39 75 MG Orally Sep 29, 1 tablet Bisulfate Once a day 2014 Ondansetron [facility] [address]-38 4 MG Orally not defined Novolin 70/30 [facility] [address]-10 (70-30) 100 5 units UNIT/ML Subcutaneous Twice every day ABC Plus [facility] 611[address] Orally not defined Lisinopril [facility] [address]-44 5 MG Orally 1 tablet Once a day Aspirin [facility] [address]-86 81 MG Orally 1 tablet Once a day NovoLog [facility] [address]-28 100 UNIT/ML Oct 11, up to 12 units Flexpen Subcutaneous 2014 per day as TID with meals directed DX E11.9 Iron [facility] [address]-68 325 (65 Fe) MG 1 tablet Orally Once a day Gabapentin [facility] [address]-75 300 MG Orally 1 capsule Three times a day Ocuvite [facility] [address]-10 Orally not defined Metformin HCl [facility] [address]-60 500 MG Orally 2 tablets in Once a day the am and 1 tablet in the pm Protonix [facility] [address]-18 40 MG Orally June 26, 1 tablet Once a day 2015 Simvastatin [facility] 63397338513 20 MG Orally 1 tablet in Once a day the evening Procedures Procedure Coding System Code Date OFFICE VISIT, EST-LOW COMPLEXITY (15 MIN.) CPT-4 26297 August 31, 2015 [facility] visit Established Patient CPT-4 G0467 August 31, 2015 Vital Signs Date/Time: August 31, 2015 BMI 22.74 Index Height 69 in Weight 154 lbs Respiratory Rate 16 /min Blood Pressure Diastolic 40 mm Hg Blood Pressure Systolic 96 mm Hg Cardiac Monitoring Heart Rate 80 /min Results No Known Results Summary Purpose eClinicalWorks Submission
--- OUTSIDE RECORDS SUMMARY | 2017-02-10 18:47 | External Medical Summary ---
:1930 Author Organization [employer]ClinicalWorks Care Team Providers Name Role Phone Nathan Arnold Provider Role Unavailable Allergies No Known Allergies Problems Problem Type Condition Code Onset Dates Condition Status Problem Anemia, unspecified D64.9 Active Problem Coronary atherosclerosis of 414.00 Active unspecified type of vessel, [place] or graft Problem Hypertension, benign 401.1 Active Problem Type 2 diabetes mellitus without E11.9 Active complications Problem Spinal stenosis, lumbar region M48.06 Active Problem Gastro-esophageal reflux disease K21.9 Active without esophagitis Problem Pain in right ankle and joints of M25.571 Active right foot Problem Mixed hyperlipidemia 272.2 Active Problem Mixed hyperlipidemia 272.2 Active Problem Atherosclerotic heart disease of I25.10 Active [place] coronary artery without angina pectoris Problem Diabetes Mellitus Type 2, not 250.00 Active stated as uncontrolled Medications No Known Medications Results No Known Results Summary Purpose [employer]ClinicalWorks Submission
--- OUTSIDE RECORDS SUMMARY | 2017-02-10 18:47 | External Medical Summary ---
:1930 Author Organization [employer]ClinicalWorks Care Team Providers Name Role Phone Nathan Arnold Provider Role Unavailable Allergies No Known Allergies Problems Problem Type Condition ICD-9 Code Onset Dates Condition Status Problem Coronary atherosclerosis of 414.00 Active unspecified type of vessel, [place] or graft Problem Hypertension, benign 401.1 Active Problem Mixed hyperlipidemia 272.2 Active Problem Diabetes Mellitus Type 2, not 250.00 Active stated as uncontrolled Medications Medication Code System Code Instructions Start Date End Date Status Dosage Lantus [facility] [address] 100 UNIT/ML 20 units -33 Subcutaneous Once a day at bedtime Results No Known Results Summary Purpose [employer]ClinicalWorks Submission
--- OUTSIDE RECORDS SUMMARY | 2017-02-10 18:47 | External Medical Summary ---
:1930 Author Organization [employer]ClinicalWorks Care Team Providers Name Role Phone Nathan Arnold Provider Role Unavailable Allergies No Known Allergies Problems Problem Type Condition Code Onset Dates Condition Status Problem Mixed hyperlipidemia 272.2 Active Problem Mixed hyperlipidemia 272.2 Active Problem Unspecified anemia 285.9 Active Problem Diabetes Mellitus Type 2, not stated 250.00 Active as uncontrolled Assessment Pneumonia, organism unspecified 486 Active Problem Coronary atherosclerosis of 414.00 Active unspecified type of vessel, [place] or graft Problem Hypertension, benign 401.1 Active Medications Medication Code System Code Instructions Start Date End Date Status Dosage Lantus [facility] 72316-102 100 UNIT/ML 13 units 0-33 Subcutaneous as every directed. morning and 11 units every evening. do daily. Results No Known Results Summary Purpose [employer] Submission
--- OUTSIDE RECORDS SUMMARY | 2017-02-10 18:47 | External Medical Summary | Referral Summary ---
:1930 Author Organization [facility] Address [address] [place] [address] [place] [id number] Care Team Providers Name Role Phone Nathan Arnold Primary Care Physician Encounter VC Date(s): 03/07/16 - 03/07/16 [facility] [address] [place] [address] [place] [phone] [place] Discharge Diagnosis: Hiatal hernia Discharge Diagnosis: History of Castellanos's esophagus Discharge Diagnosis: Hematemesis Discharge Disposition: -Home or Self Care Attending Physician: Quentin Live MD Admitting Physician: Quentin Live MD Referring Physician: Nathan Arnold DO Vital Signs Most recent to oldest [Reference Range]: 1 Temperature Tympanic [36.6-38.1 degC] 36.3 degC *LOW* (03/07/16 10:37 AM) Peripheral Pulse Rate [60-100 bpm] 67 bpm (03/07/16 10:37 AM) Respiratory Rate [14-20 br/min] 18 br/min (03/07/16 10:37 AM) Blood Pressure [90-140/60-90 mmHg] 110/54 mmHg (03/07/16 10:37 AM) SpO2 96 % (03/07/16 10:37 AM) Problem List Condition Effective Dates Status Health Status Informant Coronary arteriosclerosis Active (disorder)(Confirmed) Essential hypertension Active (disorder)(Confirmed) GERD (gastroesophageal reflux Active disease)(Confirmed) 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 disorder Active (disorder)(Confirmed) DM (diabetes mellitus), type Active 2(Confirmed) Allergies, Adverse Reactions, Alerts No Known Medication Allergies Medications clopidogrel 75 mg oral tablet 75 mg 1 tabs, Oral, Daily, # 30 tabs, 0 Refill(s) Start Date: 03/07/16 Status: OrdereddiphenhydrAMINE/lidocaine/aluminum hydroxide/magnesium hydroxide/ simethicone mucous membrane susp 0 Refill(s) Start Date: 03/07/16 Status: Orderedferrous fumarate 325 mg (106 mg elemental iron) oral tablet 325 mg 1 tabs, Oral, Daily, # 30 tabs, 0 Refill(s) Start Date: 03/07/16 Status: OrderedFish Oil oral capsule 1 caps, Oral, Daily, # 100 caps, 0 Refill(s) Start Date: 03/07/16 Status: OrderedLantus 100 units/mL subcutaneous solution 6 units, SubCutaneous, Daily, pm, 0 Refill(s) Start Date: 03/07/16 Status: OrderedLantus 100 units/mL subcutaneous solution 18 units, SubCutaneous, Daily, am, 0 Refill(s) Start Date: 03/07/16 Status: Orderedlisinopril 5 mg oral tablet 5 mg 1 tabs, Oral, Daily, # 30 tabs, 0 Refill(s) Start Date: 03/07/16 Status: OrderedmetFORMIN 500 mg oral tablet 500 mg 1 tabs, Oral, BID, # 60 tabs, 0 Refill(s) Start Date: 03/07/16 Status: Orderedmetoprolol succinate 25 mg oral tablet, extended release 25 mg 1 tabs, Oral, Daily, # 30 tabs, 0 Refill(s) Start Date: 03/07/16 Status: Orderedmultivitamin 1 tabs, Oral, Daily, 0 Refill(s) Start Date: 03/07/16 Status: OrderedNovoLOG 100 units/mL subcutaneous solution See Instructions, 12 units SubCutaneous TIDAC, 0 Refill(s) Start Date: 03/07/16 Status: OrderedOcuvite 1 tabs, Oral, Daily, 0 Refill(s) Start Date: 03/07/16 Status: Orderedondansetron 4 mg oral disintegrating strip 1 tabs, Oral, q4hr, as needed for nausea/vomiting, # 10 tabs, 0 Refill(s) Start Date: 03/07/16 Status: Orderedpantoprazole 40 mg oral delayed release tablet 40 mg 1 tabs, Oral, Daily, 0 Refill(s) Start Date: 08/23/15 Status: Orderedsimvastatin 20 mg oral tablet 20 mg 1 tabs, Oral, Bedtime (once a day), # 30 tabs, 0 Refill(s) Start Date: 03/07/16 Status: Ordered Results No data available for this section Immunizations Given and Recorded Vaccine Date Status Refusal Reason tetanus-diphth toxoids (Td) adult/adol 08/19/09 Given Procedures Procedure Date Related Diagnosis Body Site Esophagogastroduodenoscopy, flexible, transoral; 08/04/15 with biopsy, single or multiple1, 2 Laparoscopic repair of inguinal hernia3 09/22/14 Colonoscopic polypectomy4 12/16/13 Placement of stent in cardiac conduit5 2010 History of left total knee replacement 2008 Placement of stent in cardiac conduit 2007 Colonoscopy 12/23/06 Placement of stent in cardiac conduit 2004 Traumatic amputation of thumb 2001 CABG x 3 - Coronary artery bypass grafts x 3 1991 1hiatal [id number] FOR CASTELLANOS'S, POSSIBLE DYSPLAGIA. NEEDS TO STAY ON PANTOPRAZOLE. NO CANCER. 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 You can be born with a hiatal hernia (congenital), or it may develop ove r time. In almost all cases of hiatal hernia, only the top part of the stomach pushes through. Many people have a hiatal hernia with no symptoms. The larger the hernia, the more likely that you will have symptoms. In some cases, a hiatal hernia allows stomach acid to flow back into the tube that carries food from your mouth to your stomach (esophagus). This may cause heartburn symptoms. Severe heartburn symptoms may mean you have developed a condition called gastroesophageal reflux disease (GERD). CAUSES Hiatal hernias are caused by a weakness in the opening (hiatus) where your esophagus passes through your diaphragm to attach to the upper part of your stomach. You may be born with a weakness in your hiatus, or a weakness can develop. RISK FACTORS Older age is a major risk factor for a hiatal hernia. Anything that increases pressure on your diaphragm can also increase your risk of a hiatal hernia. This includes: . Excess weight. Frequent constipation. SIGNS AND SYMPTOMS People with a hiatal hernia often have no symptoms. If symptoms develop, they are almost always caused by GERD. They may include: Heartburn. Belching. Indigestion. Trouble swallowing. Coughing or wheezing. Sore throat. Hoarseness. Chest pain. DIAGNOSIS A hiatal hernia is sometimes found during an exam for another problem. Your health care provider may suspect a hiatal hernia if you have symptoms of GERD. Tests may be done to diagnose GERD. These may include: X-rays of your stomach or chest. An upper gastrointestinal (GI) series. This is an X-ray exam of your GI tract involving the use of a chalky liquid that you swallow. The liquid shows up clearly on the X-ray. Endoscopy. This is a procedure to look into your stomach using a thin, flexible tube that has a tiny camera and light on the end of it. TREATMENT If you have no symptoms, you may not need treatment. If you have symptoms, treatment may include: Dietary and lifestyle changes to help reduce GERD symptoms. Medicines. These may include: [id number] antacids. Medicines that make your stomach empty more quickly. Medicines that block the production of stomach acid (H2 blockers). Stronger medicines to reduce stomach acid (proton pump inhibitors). You may need surgery to repair the hernia if other treatments are not helping. HOME CARE INSTRUCTIONS Take all medicines as directed by your health care provider. Quit smoking, if you smoke. Try to achieve and maintain a healthy body weight. Eat frequent small meals instead of three large meals a day. This keeps your stomach from getting too full. Eat slowly. Do not lie down right after eating. Do noteat 12 hours before bed. Do not drink beverages with caffeine. These include cola, coffee, cocoa , and tea. Do not drink alcohol. Avoid foods that can make symptoms of GERD worse. These may include: Fatty foods. [place] fruits. Other foods and drinks that contain acid. Avoid putting pressure on your belly. Anything that puts pressure on your belly increases the amount of acid that may be pushed up into your esophagus. Avoid bending over, especially after eating. Raise the head of your bed by putting blocks under the legs. This keeps your head and esophagus higher than your stomach. Do not wear tight clothing around your chest or stomach. Try not to strain when having a bowel movement, when urinating, or when lifting heavy objects. SEEK MEDICAL CARE IF: Your symptoms are not controlled with medicines or lifestyle changes. You are having trouble swallowing. You have coughing or wheezing that will not go away. SEEK IMMEDIATE MEDICAL CARE IF: Your pain is getting worse. Your pain spreads to your arms, neck, jaw, teeth, or back. You have shortness of breath. You sweat for no reason. You feel sick to your stomach (nauseous) or vomit. You vomit blood. You have bright red blood in your stools. You have black, tarry stools. This information is not intended to replace advice given to you by your health care provider. Make sure you discuss any questions you have with your health care provider. Document Released: 04/19/2004 Document Revised: 02/18/2015 Document Reviewed: 01/15/2014 [employer] Interactive Patient Education 2016 [employer] No follow up information was provided. Extracted from: Title: Office Visit Note Author: Quentin Live MD Date: 03/07/16 Assessment/Plan 1.Hematemesis Ordered: Office Visit Level 4 Est 42463 2.Hiatal hernia Ordered: Office Visit Level 4 Est 57071 3.History of Castellanos's esophagus Ordered: Office Visit Level 4 Est 54966 Plan: Patient to keepappointment withgastroenterologistfor further evaluation. As above I did spend some time reviewing the patient's records. Specifically reviewedprior EGD report from August 04, 2015. Findings are as above in history of present illness. Patient wa s found to have hiatal hernia, benign gastric polyps,endoscopic and pathologicfindingsfor Castellanos'sesophagus with associated focal glandular atypiaindeterminate for dysplasia. I informed the patient that I concur with his PCPsmedical management of increasing his PPI to a twice a day dosing. I informed the patient that with his recent bout of hematemesisand his prior EGD report reveal ing Castellanos's withatypiaI would recommend that he undergo repeatEGD. I informed the patient that it does not"make sense"for me to do an EGD and have the patient thenpresent to gastroentero logy. I informed the patientthatIwould proceed howeverhe and his daughter would liketo, specificallyhe couldkeep his appointment with gastrologyhad I would not proceed with any further evaluationorI would be more than happy to proceed with EGD. Patient at this time stated that hewould like to talk to his daughterbut plans on keeping [place] appointment [place]enter[place]. Patient at this time isto follow-up with me on when necessary basis. Is return to his PCP for his ongoing medical care..
--- OUTSIDE RECORDS SUMMARY | 2017-02-10 18:47 | External Medical Summary ---
:1930 Author Organization [employer] Care Team Providers Name Role Phone Nathan Aronld Provider Role Unavailable Allergies No Known Allergies Problems Problem Type Condition ICD-9 Code Onset Dates Condition Status Problem Mixed hyperlipidemia 272.2 Active Problem Mixed hyperlipidemia 272.2 Active Problem Unspecified anemia 285.9 Active Problem Diabetes Mellitus Type 2, not 250.00 Active stated as uncontrolled Problem Coronary atherosclerosis of 414.00 Active unspecified type of vessel, [place] or graft Problem Hypertension, benign 401.1 Active Medications No Known Medications Results No Known Results Summary Purpose [employer]Works Submission
--- OUTSIDE RECORDS SUMMARY | 2017-02-10 18:47 | External Medical Summary ---
:1930 Author Organization [employer] Care Team Providers Name Role Phone Nathan Arnold Provider Role Unavailable Allergies No Known Allergies Problems Problem Type Condition Code Onset Dates Condition Status Problem Anemia, unspecified D64.9 Active Problem Coronary atherosclerosis of 414.00 Active unspecified type of vessel, [place] or graft Problem Hypertension, benign 401.1 Active Assessment Spinal stenosis, lumbar region M48.06 Active Problem Type 2 diabetes mellitus without E11.9 Active complications Problem Spinal stenosis, lumbar region M48.06 Active Problem Gastro-esophageal reflux disease K21.9 Active without esophagitis Problem Pain in right ankle and joints of M25.571 Active right foot Problem Mixed hyperlipidemia 272.2 Active Problem Mixed hyperlipidemia 272.2 Active Problem Atherosclerotic heart disease of I25.10 Active [place] coronary artery without angina pectoris Problem Diabetes Mellitus Type 2, not 250.00 Active stated as uncontrolled Medications No Known Medications Results No Known Results Summary Purpose [employer] Submission
--- OUTSIDE RECORDS SUMMARY | 2017-02-10 18:47 | External Medical Summary ---
[...] Problem Atherosclerotic heart disease of I25.10 Active [place] coronary artery without angina pectoris Problem Diabetes Mellitus Type 2, not 250.00 Active stated as uncontrolled Medications No Known Medications Procedures Procedure Coding System Code Date PTT- PT/PTT CPT-4 98736 Sep 26, 2015 PT- PT/PTT CPT-4 98209 Sep 26, 2015 UA+GENARO WITH REFLEX TO CULTURE CPT-4 84156 Sep 26, 2015 Results No Known Results Summary Purpose [employer] Submission
--- OUTSIDE RECORDS SUMMARY | 2017-02-10 18:47 | External Medical Summary ---
:1930 Author Organization [employer] Care Team Providers Name Role Phone Nathan Arnold Provider Role Unavailable Allergies, Adverse Reactions, Alerts Substance Reaction Event Type N.K.D.A. 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 Assessment Essential (primary) hypertension I10 Active Assessment Decreased white blood cell count, D72.819 Active unspecified Assessment Pneumonia, unspecified organism J18.9 Active Assessment Unilateral inguinal hernia, with K40.31 Active obstruction, without gangrene, recurrent Problem Mixed hyperlipidemia 272.2 Active Problem Coronary atherosclerosis of 414.00 Active unspecified type of vessel, [place] or graft Problem Mixed hyperlipidemia 272.2 Active Problem Anemia, unspecified D64.9 Active Assessment Other specified diabetes mellitus E13.9 Active without complications Problem Hypertension, benign 401.1 Active Problem Diabetes Mellitus Type 2, not 250.00 Active stated as uncontrolled Medications Medication Code Code Instructions Start End Date Status Dosage System Date Lantus [facility] 75807-69 100 UNIT/ML 13 units 20-33 Subcutaneous as every directed. morning and 9 units every evening. do daily. Novolin 70/30 [facility] 30435-49 (70-30) 100 5 units 37-11 UNIT/ML Subcutaneous TID Iron [facility] 24333-60 325 (65 Fe) MG 1 tablet 75-78 Orally Once a day Ocuvite [facility] 64453-20 Orally not defined 87-[address] [facility] 36680-51 100 UNIT/ML Oct 11, 5 units 39-10 Subcutaneous TID 2014 [place] [address]-22 500 MG Orally 1 tablet 48-01 Twice a day with meals Bystolic [facility] 63334-40 5 MG Orally Once 1 tablet 05-[address] [facility] 42057-56 40 MG Orally 1 capsule 12- Once a day Clopidogrel [facility] 19081-36 75 MG Orally Sep 29, 1 tablet Bisulfate 14-05 Once a day [address] [facility] 85045-06 Orally not defined [address] [facility] 03917-73 20 MG Orally 1 tablet in 54-10 Once a day the evening Fish Oil [facility] 17467-64 1000 MG Orally 1 capsule 71-40 Once a day Ventolin HFA [facility] 62753-19 108 (90 Base) Nov 03, 1 to 2 puffs 82-20 MCG/ACT 2014 as needed Inhalation every for 6 hrs cough/wheezi ng/soa. Lisinopril [facility] 86281-44 5 MG Orally Once 1 tablet 66-[address] [facility] 12798-93 81 MG Orally 1 tablet 74-68 Once a day FreeStyle Lite [facility] 00543-81 1 In Vitro four Oct 05, as directed Test 819 times a day 2014 Procedures Procedure Coding System Code Date OFFICE VISIT, EST-MOD. COMPLEXITY (25 MIN) CPT-4 84280 Jan 04, 2015 [facility] visit Established Patient CPT-4 G0467 Jan 04, 2015 Vital Signs Date/Time: Jan 04, 2015 Height 69 in Weight 167.12 lbs Temperature 97.9 F Blood Pressure Diastolic 54 mm Hg Blood Pressure Systolic 120 mm Hg Cardiac Monitoring Heart Rate 71 /min BMI 24.68 Index Oximetry 98 % Respiratory Rate 16 /min Results No Known Results Summary Purpose [employer]ClinicalWorks Submission
--- OUTSIDE RECORDS SUMMARY | 2017-02-10 18:48 | External Medical Summary | Continuity of Care Document ---
:1930 Demographics Phone Unavailable Preferred Language Unknown Marital Status Unknown Faith Affiliation Unknown Race Unknown Ethnic Group Unknown Author Organization [facility] Allergies There is no data. Medications There is no data. Problems There is no data. Procedures There is no data. Results There is no data. Encounters ACCT No. Visit Discharge Status Pt. Type Provider Facility Loc./Unit Complaint Date/Time [id number] 06/04/2013 [facility] Unknown 0422 13:30:00 [id number] 02/10/2013 [facility] Unknown 1231 08:59:00
--- OUTSIDE RECORDS SUMMARY | 2017-02-10 18:48 | External Medical Summary ---
:1930 Author Organization [employer]ClinicalWorks Care Team Providers Name Role Phone Nathan Arnold Provider Role Unavailable Allergies No Known Allergies Problems Problem Type Condition Code Onset Dates Condition Status Problem Mixed hyperlipidemia 272.2 Active Problem Mixed hyperlipidemia 272.2 Active Problem Unspecified anemia 285.9 Active Problem Diabetes Mellitus Type 2, not stated 250.00 Active as uncontrolled Problem Coronary atherosclerosis of 414.00 Active unspecified type of vessel, [place] or graft Problem Hypertension, benign 401.1 Active Medications Medication Code System Code Instructions Start Date End Date Status Dosage Bystolic [facility] [address] 5 MG Orally Once 1 tablet -01 a day Results No Known Results Summary Purpose eClinicalWorks Submission
--- OUTSIDE RECORDS SUMMARY | 2017-02-10 18:48 | External Medical Summary ---
:1930 Author Organization [facility] Address [address] [id number] Care Team Providers Name Role Phone Fernanda Bronson Unavailable Unavailable PROBLEMS Type Condition ICD9-CM [id number] Onset Condition SNOMED Code Code Code Dates Status Problem Hiatal hernia K44.9 Active 28908199 Problem Barretts esophagus K22.719 Active 2229525994616587 with dysplasia Assessment Barretts esophagus K22.719 Apr, Active [id number] with dysplasia 2016 Problem Gastroesophageal K21.9 Active 119888779 reflux disease, esophagitis presence not specified Problem Hematemesis, K92.0 Active 2885605 presence of nausea not specified ALLERGIES Substance Reaction Event Type Date Status N.K.D.A. Unknown Non Drug Allergy Apr, Unknown SOCIAL HISTORY No smoking Hx information available PLAN OF CARE VITAL SIGNS Height 69 in 2016-05-09 Weight 165 lbs 2016-05-09 Heart Rate 76 /min 2016-05-09 Respiratory Rate 16 /min 2016-05-09 BMI 24.36 kg/m2 2016-05-09 Blood pressure systolic 106 mm Hg 2016-05-09 Blood pressure diastolic 50 mm Hg 2016-05-09 MEDICATIONS Medication Instructions Dosage Frequency Start End Duration Status Date Date Lidocaine Active Lantus 100 18 units am Active UNIT/ML 6 units pm Carafate 1 GM Orally as needed 1 tablet on Active an empty stomach Lisinopril 5 MG Orally Once a 1 tablet 24h Active day NovoLog 100 Subcutaneous ac 12 units Active UNIT/ML meals Ranitidine HCl Orally at 1 capsule 30 days Active 150 MG bedtime Fish Oil 1200 MG Orally Once a 1 capsule 24h Active day Metoprolol Orally Twice a 1 tablet 12h Active Tartrate 25 MG day with food Metformin HCl 12h Active Simvastatin 20 Orally Once a 1 tablet in 24h Active MG day the evening Iron 325 (65 Fe) Orally Once a 1 tablet 24h Active MG day Clopidogrel Orally Once a 1 tablet 24h Active Bisulfate 75 MG day Pantoprazole Orally Once a 1 tablet 24h Active Sodium 40 MG day Ocuvite - Orally daily 24h Active RESULTS No Results PROCEDURES Procedure Date Ordered Related Diagnosis Body Site Office Visit, Est Pt., Level 4 May 09, 2016 IMMUNIZATIONS No Known Immunizations
--- OUTSIDE RECORDS SUMMARY | 2017-02-10 18:48 | External Medical Summary ---
:1930 Author Organization [employer] Care Team Providers Name Role Phone Nathan Arnold Provider Role Unavailable Allergies No Known Allergies Problems Problem Type Condition Code Onset Dates Condition Status Problem Type 2 diabetes mellitus without E11.9 Active complications Problem Hypertension, benign 401.1 Active Problem Anemia, unspecified D64.9 Active Problem Gastro-esophageal reflux disease K21.9 Active without esophagitis Problem Atherosclerotic heart disease of I25.10 Active [place] coronary artery without angina pectoris Problem Spinal stenosis, lumbar region M48.06 Active Problem Mixed hyperlipidemia 272.2 Active Problem Coronary atherosclerosis of 414.00 Active unspecified type of vessel, [place] or graft Problem Diabetes Mellitus Type 2, not stated 250.00 Active as uncontrolled Problem Mixed hyperlipidemia 272.2 Active Medications No Known Medications Results No Known Results Summary Purpose [employer]Works Submission
--- OUTSIDE RECORDS SUMMARY | 2017-02-10 18:48 | External Medical Summary ---
:1930 Author Organization [employer] Care Team Providers Name Role Phone Nathan Arnold Provider Role Unavailable Allergies No Known Allergies Problems Problem Type Condition ICD-9 Code Onset Dates Condition Status Problem Mixed hyperlipidemia 272.2 Active Problem Coronary atherosclerosis of 414.00 Active unspecified type of vessel, [place] or graft Problem Mixed hyperlipidemia 272.2 Active Problem Hypertension, benign 401.1 Active Problem Diabetes Mellitus Type 2, not 250.00 Active stated as uncontrolled Medications No Known Medications Results No Known Results Summary Purpose [employer]Works Submission
--- OUTSIDE RECORDS SUMMARY | 2017-02-10 18:48 | External Medical Summary ---
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 Problem Spinal stenosis, lumbar region M48.06 Active Problem Mixed hyperlipidemia 272.2 Active Problem Coronary atherosclerosis of 414.00 Active unspecified type of vessel, andreafski or graft Problem Diabetes Mellitus Type 2, not stated 250.00 Active as uncontrolled Problem Mixed hyperlipidemia 272.2 Active Assessment Calculus of gallbladder without K80.20 Active cholecystitis without obstruction Assessment Type 2 diabetes mellitus without E11.9 Active complications Assessment Common variable immunodeficiency, 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 Assessment Anemia, unspecified D64.9 Active Assessment Gastro-esophageal reflux disease K21.9 Active without esophagitis Assessment Spinal stenosis, lumbar region M48.06 Active Assessment Hematemesis K92.0 Active Medications Medication Code Code Instructions Start End Status Dosage System Date Date Lisinopril [facility] [address]-74 5 MG Orally 1 tablet Once a day ABC Plus [facility] 98356-[address] Orally not defined Novolin 70/[address] [facility] [address]-56 (70-30) 100 5 units UNIT/ML Subcutaneous Twice every day Clopidogrel [facility] [address]-09 75 MG Orally Sep 29, 1 tablet Bisulfate Once a day [address] [facility] [address]-02 100 UNIT/ML Oct 11, up to 12 units Flexpen Subcutaneous 2014 per day as TID with meals directed DX E11.[address] [facility] [address]-61 4 MG Orally not defined Lantus [facility] 76187739496 100 UNIT/ML INJECT 20U AT BEDTIME Fish Oil [facility] [address]-89 1000 MG Orally 1 capsule Once a day Lidoderm [facility] [address]-67 5 % Externally August 11 patch to Once a day 05, intact skin 2015 remove after 12 hours. cover most painful areas. FreeStyle Lite [facility] [id number] TEST BLOOD Test SUGAR 2 TIMES DAILY DIRECTED - E11.[address] [facility] [address]-50 300 MG Orally 1 capsule Three times a day Colace [facility] [address]-33 100 MG Orally July 1 capsule as every 12 09, 07, needed for hours. 2015 2015 constipation Metformin HCl [facility] [address]-74 500 MG Orally 2 tablets in Once a day the am and 1 tablet in the pm Protonix [facility] [address]-30 40 MG Orally June 26, 1 tablet Once a day [address] [facility] [address]-04 Orally not defined Aspirin [facility] [address]-44 81 MG Orally 1 tablet Once a day Simvastatin [facility] [address]-42 20 MG Orally 1 tablet in Once a day the evening Ventolin HFA [facility] [address]-35 108 (90 Base) Sept 1 to 2 puffs MCG/ACT 23, as needed for Inhalation 2014 cough/wheezing every 6 hrs /soa. Iron [facility] [address]-21 325 (65 Fe) MG 1 tablet Orally Once a day Bystolic [facility] [address]-37 5 MG Orally 1 tablet Once a day Procedures Procedure Coding System Code Date OFFICE VISIT, EST-LOW COMPLEXITY (15 MIN.) CPT-4 70490 August 25, 2015 [facility] visit Established Patient CPT-4 G0467 August 25, 2015 Vital Signs Date/Time: August 25, 2015 Temperature 98.2 F Height 69 in Weight 154.7 lbs Blood Pressure Diastolic 50 mm Hg Blood Pressure Systolic 114 mm Hg Cardiac Monitoring Heart Rate 80 /min BMI 22.84 Index Oximetry 98 % Respiratory Rate 16 /min Results No Known Results Summary Purpose eClinicalWorks Submission
--- OUTSIDE RECORDS SUMMARY | 2017-02-10 18:48 | External Medical Summary ---
:1930 Author Organization eClinicalWorks Care Team Providers Name Role Phone Nathan Arnold Provider Role Unavailable Allergies, Adverse Reactions, Alerts Substance Reaction Event Type N.K.D.A. 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 rincon coronary artery without angina pectoris Problem Diabetes Mellitus Type 2, not 250.00 Active stated as uncontrolled Assessment Atherosclerotic heart disease of I25.10 Active rincon coronary artery without angina pectoris Assessment Sprain of unspecified ligament of S93.401A Active right ankle, initial encounter Assessment Type 2 diabetes mellitus without E11.9 Active complications Assessment Encounter for preprocedural Z01.810 Active cardiovascular examination Assessment Spinal stenosis, lumbar region M48.06 Active Problem Type 2 diabetes mellitus without E11.9 Active complications Medications Medication Code Code Instructions Start End Status Dosage System Date Date Lantus [facility] [address]-16 100 UNIT/ML Sep 22 units SoloStar Subcutaneous 2015 Once a day Fish Oil [facility] [address]-43 1000 MG Orally 1 capsule Once a day ABC Plus [facility] 58839-[address] Orally not defined Gabapentin [facility] [address]-64 300 MG Orally 1 capsule Three times a day Lantus [facility] 66194877431 100 UNIT/ML INJECT 20U AT BEDTIME Aspirin [facility] [address]-56 81 MG Orally 1 tablet Once a day Simvastatin [facility] 45517949462 20 MG Orally 1 tablet in Once a day the evening Ventolin HFA [facility] [address]-55 108 (90 Base) Sept 1 to 2 puffs MCG/ACT 23, as needed for Inhalation 2014 cough/wheezing every 6 hrs /soa. Ondansetron [facility] [address]-84 4 MG Orally not defined Lidoderm [facility] [address]-77 5 % Externally August 11 patch to Once a day 05, intact skin 2015 remove after 12 hours. cover most painful areas. FreeStyle Lite [facility] [id number] TEST BLOOD Test SUGAR 2 TIMES DAILY DIRECTED - E11.[address] [facility] [address]-18 100 UNIT/ML Oct 11, up to 12 units Flexpen Subcutaneous 2014 per day as TID with meals directed DX E11.[address] [facility] [address]-32 5 MG Orally 1 tablet Once a day Metoprolol [facility] [address]-70 25 MG Orally 1 tablet Tartrate Once a day Metformin HCl [facility] [address]-05 500 MG Orally 2 tablets in Once a day the am and 1 tablet in the pm Colace [facility] [address]-87 100 MG Orally July 1 capsule as every 12 09, 07, needed for hours. [address] [facility] [address]-42 Orally not defined Clopidogrel [facility] [address]-82 75 MG Orally Sep 29, 1 tablet Bisulfate Once a day [address] [facility] [address]-80 40 MG Orally June 26, 1 tablet Once a day 2015 Procedures Procedure Coding System Code Date OFFICE VISIT, EST-LOW COMPLEXITY (15 MIN.) CPT-4 89491 Sep 23, 2015 [facility] visit Established Patient CPT-4 G0467 Sep 23, 2015 Vital Signs Date/Time: Sep 23, 2015 Temperature 97.6 F Height 69 in Weight 155.5 lbs Blood Pressure Diastolic 38 mm Hg Blood Pressure Systolic 100 mm Hg Cardiac Monitoring Heart Rate 68 /min BMI 22.96 Index Respiratory Rate 16 /min Results No Known Results Summary Purpose eClinicalWorks Submission
--- OUTSIDE RECORDS SUMMARY | 2017-02-10 18:48 | External Medical Summary ---
[...] of 414.00 Active unspecified type of vessel, [place] or graft Problem Hypertension, benign 401.1 Active Medications Medication Code System Code Instructions Start Date End Date Status Dosage NovoLog Flexpen [facility] [address] 100 UNIT/ML Oct 11, 5 units 9-10 Subcutaneous TID 2014 with meals Results No Known Results Summary Purpose eClinicalWorks Submission
[2017-02-10] MEDS ORDERED: GI COCKTAIL 30 ML PO ONE (19:12)
[2017-02-10] MEDS ORDERED: NS 1,000 ML IV ONE (19:12)
[2017-02-10] MEDS ORDERED: NS 100 ML ONE (19:25)
[2017-02-10] MEDS ORDERED: SALINE FLUSH 10ml SYRINGE ONE (19:25)
[2017-02-10] MEDS ORDERED: IOHEXOL 300mg/ml 100ml INJECTION ONE (19:25)
--- NOTE | 2017-02-10 19:43 | Emergency Department Report ---
Abdominal Pain HPI - General Chief Complaint: Chest Pain <Yesenia Carballo 02/10/17 19:44> Stated Complaint: heartburn, poss gallstones <Yesenia Carballo 02/10/17 19 :44> Time Seen by Provider: 02/10/17 18:30 <Yesenia Carballo Mariana 02/10/17 19:44> Source: patient, family <Yesenia Carballo 02/10/17 19:44> Mode of arrival: ambulatory <Yesenia Carballo 02/10/17 19:44> Limitations: no limitations <Yesenia Carballo 02/10/17 19:44> - History of Present Illness HPI narrative: Pt presents with a c/o epigastric pain which he states he has had for 2 years. Pt is a poor historian who has difficulty giving direct answers however after repeated questioning pt states his epigastric pain has increased in frequency over the last 2 weeks. He was recently started on carafate and a swish and swallow by his daughter who is an GERIATRIC NURSING ASSISTANT. He last took that about 0900 this am. Pt reports having a soft boiled egg for breakfast which did not increase his pain however he has not had anything else to eat today. Pt reports having had 2 EGDs over the last 2 years or so ? One d/t a GI bleed which he reports they never found the source. Pt has an extensive cardiac history including a CABG. He is currently wondering why he is here as he is not having pain at this time. <Yesenia Carballo Mariana 02/10/17 19:44> Onset (ago): year(s) <Yesenia Carballo Mariana 02/10/17 19:44> Consistency: intermittent <Yesenia Carballo Mariana 02/10/17 19:44> Location: epigastric <WendyashuYesenia Peña 02/10/17 19:44> Severity: similar to previous episodes <Yesenia Carballo 02/10/17 19:44> Severity scale (1-10): 2 <HarisYeseniakiana Peña 02/10/17 19:44> Quality: burning <HarisYeseniakiana Peña 02/10/17 19:44> Radiation: none <Yesenia Carballo 02/10/17 19:44> Migration to: no migration <Yesenia Carballo Robbie Peña 02/10/17 19:44> Relieving factors: medication (carafate) <HarisYesenia Robbie Peña 02/10/17 19:44> Exacerbating factors: eating <Yesenia Carballo Robbie Peña 02/10/17 19:44> Associated symptoms: denies other symptoms <HarisYeseniakiana Peña 02/10/17 19: 44> Treatments prior to arrival: antacids <Yesenia Carballo Robbie Peña 02/10/17 19:44> - Related Data Home Medications Medication Instructions Recorded Confirmed Insulin Aspart [NovoLOG] 12 unit SQ TIDWM #0 12/01/13 02/10/17 Insulin Glargine,Hum.rec.anlog 6 unit SQ HS #0 12/01/13 02/10/17 [Lantus] Simvastatin 20 mg PO HS #0 12/01/13 02/10/17 Vit C/Vit E/Lutein/Min/[place]-3 1 cap PO DAILY #0 12/01/13 02/10/17 [Ocuvite Softgel] Insulin Glargine,Hum.rec.anlog 18 unit SQ AMI #0 01/12/16 02/10/17 [Lantus Solostar] Albuterol HFA Inhaler [Ventolin 1 puff INH BID PRN 02/10/17 02/10/17 Hfa 90 mcg/actuation] Clopidogrel Bisulfate [Clopidogrel] 75 mg PO DAILY 02/10/17 02/10/17 Ferrous Sulfate [Iron] 325 mg PO DAILY 02/10/17 02/10/17 Metformin [Glucophage] 500 mg PO BIDWM 02/10/17 02/10/17 Metoprolol Tartrate [Lopressor] 50 mg PO WB 02/10/17 02/10/17 Multivitamin [One Daily] 1 tab PO DAILY 02/10/17 02/10/17 [place]-3/Dha/Epa/Fish Oil [Fish Oil 1,000 mg PO DAILY 02/10/17 02/10/17 1,000 mg Softgel] Ondansetron HCl [Zofran] 4 mg PO TID PRN 02/10/17 02/10/17 Pantoprazole Tab [Protonix Tab] 1 tab PO ACB 02/10/17 02/10/17 Sucralfate [Carafate] 1 gm PO QID PRN 02/10/17 02/10/17 Swizzle Solution 5Ml 5 ml PO QID PRN 02/10/17 02/10/17 [Lidocaine/Maalox/Benadryl Soln] Previous Rx's Medication Instructions Recorded raNITIdine HCl [Zantac] 150 mg PO HS #30 tab 01/12/16 <Yesenia Carballo 02/10/17 19:44> Allergies Allergy/AdvReac Type Severity Reaction Status Date / Time No Known Allergies Allergy Verified 02/10/17 18:24 <Yesenia Carballo 02/10/17 19:44> Review of Systems All systems: reviewed and negative except as stated <Yesenia Carballo 19:44> Constitutional: Denies: fever, chills, weakness <Yesenia Carballo 19:44> Cardiovascular: Denies: chest pain, palpitations, dyspnea on exertion < Yesenia Carballo 02/10/17 19:44> Respiratory: Denies: cough <Yesenia Carballo 02/10/17 19:44> Gastrointestinal: Denies: nausea, vomiting, diarrhea <Yesenia Carballo 19:44> [facility] Patient Stated Medical History Cardiac Arrhythmia Yes Hypertension Yes Asthma Yes Diabetes Mellitus Type 1 Yes Gastroesophageal Reflux Yes Disease <Jared Diaz 02/10/17 19:45> Patient Stated Medical History Cardiac Arrhythmia Yes Hypertension Yes Asthma Yes Diabetes Mellitus Type 1 Yes Gastroesophageal Reflux Yes Disease <Yesenia Carballo 02/10/17 19:44> - Social History Smoking status: Never smoker <Yesenia Carballo 02/10/17 19:44> Physical Exam - Limitations Limitations: no limitations <Yesenia Carballo 02/10/17 19:44> - General General appearance: alert, in no apparent distress <Yesenia Carballo 02/10 19:44> - Normal Exams: Head:: Normocephalic without trauma <Yesenia Carballo 02/10/17 19:44> Neck:: Full range of motion, without adenopathy <Yesenia Carballo 19:44> Chest/Respirations:: Clear all colbert, with good airflow, and symmetry bilaterally <Yesenia Carballo 02/10/17 19:44> Cardiovascular:: Regular rate and rhythm, without murmur or gallop, Pulses 2+ all extremities, capillary refill, <2 seconds all extremities <Yesenia Carballo 02/10/17 19:44> Abdomen:: Bowel sounds positive, soft, non-tender, non-distended <Yesenia Carballo 02/10/17 19:44> Musculoskeletal:: No tenderness, or deformity noted, good range of motion, all extremities <Yesenia Carballo 02/10/17 19:44> Integumentary:: No rashes <Yesenia Carballo 02/10/17 19:44> Neurological:: Patient is alert, and oriented, cranial nerves <Yesenia Carballo 02/10/17 19:44> Psychiatric:: Patient exhibits, appropriate attention, emotion and affect < Yesenia Carballo 02/10/17 19:44> Course Vital Signs Temperature 97.2 F 02/10/17 18:20 Pulse Rate 75 02/10/17 18:20 Respiratory Rate 16 02/10/17 18:20 Blood Pressure 156/70 H 02/10/17 18:20 Pulse Oximetry 100 02/10/17 18:20 Temperature 97.2 F 02/10/17 18:20 Pulse Rate 77 02/10/17 19:00 Respiratory Rate 23 02/10/17 19:00 Blood Pressure 159/67 H 02/10/17 19:00 Pulse Oximetry 100 02/10/17 19:00 <Jared Diaz - 02/10/17 19:45> Vital Signs Temperature 97.2 F 02/10/17 18:20 Pulse Rate 75 02/10/17 18:20 Respiratory Rate 16 02/10/17 18:20 Blood Pressure 156/70 H 02/10/17 18:20 Pulse Oximetry 100 02/10/17 18:20 Temperature 97.2 F 02/10/17 18:20 Pulse Rate 77 02/10/17 19:00 Respiratory Rate 23 02/10/17 19:00 Blood Pressure 159/67 H 02/10/17 19:00 Pulse Oximetry 100 02/10/17 19:00 <Yesenia Carballo 02/10/17 19:44> Abdominal Pain - MDM Narrative Medical decision making narrative: Lab and CT results reviewed. Dr Rdz notified of cholelithiasis. Surgeon offers pt admission tonight with OR tomorrow or to be seen in the clinic on Saturday. Options discussed with pt and who choose admission this evening. Dr Rdz notified, admission to go to the Hospitalist. Dr Hou notified and will place pt as OBs admit. <Yesenia Carballo 02/10/17 20:58> - Differential Diagnosis Differential diagnosis: Likely: abdominal pain, acute appendicitis, constipation , diverticulitis, gastroenteritis, pancreatitis <Yesenia Carballo 19:44> - Lab Data Attestation: I reviewed the patient's lab results. <Yesenia Carballo 02/10 20:58> Result diagrams: 02/10/17 18:47 02/10/17 18:47 <Yesenia Carballo 02/10/17 19:44> Lab Results 02/10/17 02/10/17 02/10/17 Range/Units 18:47 18:47 18:47 WBC 7.8 (4.5-11.0) T/MM3 RBC 3.77 L (4.50-5.90) M/MM3 Hgb 10.9 L (13.5-17.5) GM/DL Hct 34.3 L (41-53) % MCV 91.0 (80-100) UM3 MCH 28.9 (26-34) UUG MCHC 31.8 (31-37) GM/DL RDW Std Deviation 43.3 (36.9-50.2) FL Plt Count 162 (130-400) T/MM3 MPV 9.7 (9.4-12.4) UM3 Immature Gran % (Auto) 0.1 (0.0-0.5) % Neut % (Auto) 62.2 (33-66) % Lymph % (Auto) 30.2 (23-45) % [place] % (Auto) 6.6 (0-9.0) % Eos % (Auto) 0.6 (0-4) % Baso % (Auto) 0.3 (0-2) % Neut # (Auto) 4.8 (1.8-7.7) T/MM3 Lymph # (Auto) 2.3 (1-4.8) T/MM3 Sterling # (Auto) 0.5 (0-0.8) T/MM3 Eos # (Auto) 0.1 (0-0.5) T/MM3 Baso # (Auto) 0.0 (0-0.2) T/MM3 Abs Immat Gran (auto) 0.01 (0.00-0.03) T/MM3 Turbidity < 20 (0-20) Sodium 145 H (134-144) MEQ/L Potassium 4.4 (3.6-5) MEQ/L Chloride 105 (98-107) MEQ/L Carbon Dioxide 29 (22-30) MEQ/L Anion Gap 11 (5-15) MEQ/L BUN 35.0 H (9-20) MG/DL Creatinine 1.1 (0.8-1.5) MG/DL GFR Calculation 63 BUN/Creatinine Ratio 32 H (6-26) RATIO Glucose 87 (75-110) MG/DL Calculated Osmolality 286 H (261-280) MOSM/KG Calcium 9.6 (8.4-10.2) MG/DL Total Bilirubin 0.70 (0.20-1.30) MG/DL Icterus Index < 2 (0-7) AST 36 (17-59) U/L ALT 31 (21-72) U/L Alkaline Phosphatase 54 (38-126) U/L Troponin I < 0.012 (0-0.12) ng/ml Total Protein 7.5 (6.3-8.2) G/DL Albumin 4.4 (3.5-5.0) G/DL Globulin 3.1 (2.4-3.6) G/DL Albumin/Globulin Ratio 1.4 (1.1-2.2) RATIO Lipase 78 (23-300) U/L Specimen Hemolysis < 15 (0-25) Ur Collection Type Urine, clean catch Urine Color Yellow (YELLOW) Urine Clarity Clear Urine pH 7.0 (5.0-8.0) Ur Specific [place] 1.020 (1.015-1.025) Urine Protein Trace A (NEGATIVE) Urine Glucose (UA) Negative (NEGATIVE) Urine Ketones Trace A (NEGATIVE) Urine Occult Blood Negative (NEGATIVE) Urine Nitrate Negative (NEGATIVE) Urine Bilirubin Negative (NEGATIVE) Urine Urobilinogen 0.2 (NORMAL) EU/DL Ur Leukocyte Esterase Negative (NEGATIVE) Urinalysis Comment Microscopic not ind. <Jared Diaz - 02/10/17 19:45> Lab Results 02/10/17 02/10/17 02/10/17 Range/Units 18:47 18:47 18:47 WBC 7.8 (4.5-11.0) T/MM3 RBC 3.77 L (4.50-5.90) M/MM3 Hgb 10.9 L (13.5-17.5) GM/DL Hct 34.3 L (41-53) % MCV 91.0 (80-100) UM3 MCH 28.9 (26-34) UUG MCHC 31.8 (31-37) GM/DL RDW Std Deviation 43.3 (36.9-50.2) FL Plt Count 162 (130-400) T/MM3 MPV 9.7 (9.4-12.4) UM3 Immature Gran % (Auto) 0.1 (0.0-0.5) % Neut % (Auto) 62.2 (33-66) % Lymph % (Auto) 30.2 (23-45) % [place] % (Auto) 6.6 (0-9.0) % Eos % (Auto) 0.6 (0-4) % Baso % (Auto) 0.3 (0-2) % Neut # (Auto) 4.8 (1.8-7.7) T/MM3 Lymph # (Auto) 2.3 (1-4.8) T/MM3 [place] # (Auto) 0.5 (0-0.8) T/MM3 Eos # (Auto) 0.1 (0-0.5) T/MM3 Baso # (Auto) 0.0 (0-0.2) T/MM3 Abs Immat Gran (auto) 0.01 (0.00-0.03) T/MM3 Turbidity < 20 (0-20) Sodium 145 H (134-144) MEQ/L Potassium 4.4 (3.6-5) MEQ/L Chloride 105 (98-107) MEQ/L Carbon Dioxide 29 (22-30) MEQ/L Anion Gap 11 (5-15) MEQ/L BUN 35.0 H (9-20) MG/DL Creatinine 1.1 (0.8-1.5) MG/DL GFR Calculation 63 BUN/Creatinine Ratio 32 H (6-26) RATIO Glucose 87 (75-110) MG/DL Calculated Osmolality 286 H (261-280) MOSM/KG Calcium 9.6 (8.4-10.2) MG/DL Total Bilirubin 0.70 (0.20-1.30) MG/DL Icterus Index < 2 (0-7) AST 36 (17-59) U/L ALT 31 (21-72) U/L Alkaline Phosphatase 54 (38-126) U/L Troponin I < 0.012 (0-0.12) ng/ml Total Protein 7.5 (6.3-8.2) G/DL Albumin 4.4 (3.5-5.0) G/DL Globulin 3.1 (2.4-3.6) G/DL Albumin/Globulin Ratio 1.4 (1.1-2.2) RATIO Lipase 78 (23-300) U/L Specimen Hemolysis < 15 (0-25) Ur Collection Type Urine, clean catch Urine Color Yellow (YELLOW) Urine Clarity Clear Urine pH 7.0 (5.0-8.0) Ur Specific [place] 1.020 (1.015-1.025) Urine Protein Trace A (NEGATIVE) Urine Glucose (UA) Negative (NEGATIVE) Urine Ketones Trace A (NEGATIVE) Urine Occult Blood Negative (NEGATIVE) Urine Nitrate Negative (NEGATIVE) Urine Bilirubin Negative (NEGATIVE) Urine Urobilinogen 0.2 (NORMAL) EU/DL Ur Leukocyte Esterase Negative (NEGATIVE) Urinalysis Comment Microscopic not ind. <Yesenia Carballo R - 02/10/17 19:44> - Radiology Data Attestation: I reviewed the patient's radiology results. (read per V rad) < Yesenia Carballo - 02/10/17 20:58> - EKG Data EKG #1 EKG results narrative: Sinus Rhythm. First Degree AV Block. 71 bpm. No STEMI. <Jared Diaz - 02/10/17 19:46> Disposition Clinical Impression: Cholelithiasis and acute cholecystitis without obstruction <LoriayushYesenia wakefield Robbie Peña 02/10/17 20:58> Disposition: 02 To [facility] Acute Care <HarisYesenia 02/10/17 20:58> Condition: Improved <HarisYeseniakiana Peña 02/10/17 20:58> Instructions: <Yesenia Carballo 02/10/17 19:44> Prescriptions: No Action Vit C/Vit E/Lutein/Min/[place]-3 [Ocuvite Softgel] 1 cap PO DAILY #0 Simvastatin 20 mg PO HS #0 Insulin Glargine,Hum.rec.anlog [Lantus] 6 unit SQ HS #0 Insulin Aspart [NovoLOG] 12 unit SQ TIDWM #0 raNITIdine HCl [Zantac] 150 mg PO HS #30 tab Sucralfate [Carafate] 1 gm PO QID PRN PRN Reason: Prn Orders Albuterol HFA Inhaler [Ventolin Hfa 90 mcg/actuation] 1 puff INH BID PRN PRN Reason: Prn Orders [place]-3/Dha/Epa/Fish Oil [Fish Oil 1,000 mg Softgel] 1,000 mg PO DAILY Ferrous Sulfate [Iron] 325 mg PO DAILY Multivitamin [One Daily] 1 tab PO DAILY Metformin [Glucophage] 500 mg PO BIDWM Pantoprazole Tab [Protonix Tab] 1 tab PO ACB Metoprolol Tartrate [Lopressor] 50 mg PO WB Clopidogrel Bisulfate [Clopidogrel] 75 mg PO DAILY Insulin Glargine,Hum.rec.anlog [Lantus Solostar] 18 unit SQ AMI #0 Swizzle Solution 5Ml [Lidocaine/Maalox/Benadryl Soln] 5 ml PO QID PRN PRN Reason: Prn Orders Ondansetron HCl [Zofran] 4 mg PO TID PRN PRN Reason: Nausea <Yesenia Carballo 02/10/17 19:44> Referrals: Nathan Arnold DO [Family Provider] - <Yesenia Carballo 02/10 19:44> Forms: <Yesenia Carballo 02/10/17 19:44> Time of Disposition: 20:58 <Yesenia Carballo 02/10/17 20:58> - Seen By: midlevel <Yesenia Carballo 02/10/17 20:58>
[2017-02-10 21:40] VITALS: BMI 23.1
[2017-02-10] MEDS ORDERED: HYDROMORPHONE 2 MG/ML INJECTION IVP PRN (22:56)
[2017-02-10] MEDS ORDERED: HYDROCODONE/APAP 5mg/325mg TABLET PO PRN (22:56)
[2017-02-10] MEDS ORDERED: ALBUTEROL 2.5mg/3ml (0.083%) NEB AEROSOL PRN (22:56)
[2017-02-10] MEDS ORDERED: ONDANSETRON 4 MG/2 ML INJECTION IVP PRN (22:56)
--- NOTE | 2017-02-10 22:59 | History & Physical Report ---
History of Present Illness Date: 02/11/17 Chief complaint: Abdominal Pain HPI: Delvis is an 86-year-old Diabetic patient of with a history of coronary artery disease status post bypass 4 in 1991 with 4 stents placed since then, who presented to the emergency department this evening with complaints of abdominal pain. As noted by the emergency room, he is a somewhat challenging historian but it sounds like he has had intermittent epigastric abdominal pain for 2 years, which as been worse for 2 weeks. He apparently told the ER provider that he ate an egg this morning and did not have any pain, but he indicated to me that he had a lot of pain about an hour after breakfast today. He stated that he feels like he is having heartburn, but he has been on proton pump inhibition, H2 garcia, and Carafate, with a lidocaine swish and swallow as well. He reported to me that the pain is worse with spicy foods. Workup in the emergency department was essentially reassuring, CT scan revealed cholelithiasis without evidence of obstruction or cholecystitis. The case was discussed with Dr. Ayoub, who suggested the patient could be admitted by the hospitalist service or sent home to follow-up in clinic on Saturday. The patient and his requested to stay for further evaluation and management. Review of Systems - Constitutional Constitutional: Present: as per HPI, fatigue ( not very active). Absent: chills , weight loss - EENMT Mouth/Throat: Absent: painful swallowing - Cardiovascular Cardiovascular: Present: chest pain ( consistent with heartburn per the patient , associated with belching), syncope. Absent: palpitations, dyspnea on exertion ( remainder of review of systems performed and negative except as mentioned above) - Gastrointestinal Gastrointestinal: Present: as per HPI. Absent: change in stool character, melena, nausea, vomiting - Musculoskeletal Musculoskeletal: Present: stiffness Past Medical History Patient Stated Medical History Hearing Loss Yes: hard of hearing Cardiac Arrhythmia Yes Hypertension Yes Asthma Yes Diabetes Mellitus Type 1 Yes Gastroesophageal Reflux Yes Disease coronary artery disease post CABG 1991 with 4 stents placed in 2006 he states he had a stress test [address] Greene which was okay Surgical History: CABG 4 1991. TKA. herniorrhaphy Family History: he has 2 sisters living in their 90s in good health, one is nearly 100 years old. She survived breast cancer. Family History Updates: As updated above - Social History Smoking status: Never smoker Alcohol intake frequency: does not drink Housing: house (Lives in [place] with his ) Medications Home Medications Medication Instructions Recorded Confirmed Type Insulin Aspart [NovoLOG] 12 unit SQ TIDWM #0 12/01/13 02/10/17 History Insulin Glargine,Hum.rec.anlog 6 unit SQ HS #0 12/01/13 02/10/17 History [Lantus] Simvastatin 20 mg PO HS #0 12/01/13 02/10/17 History Vit C/Vit E/Lutein/Min/[place]-3 1 cap PO DAILY #0 12/01/13 02/10/17 History [Ocuvite Softgel] Insulin Glargine,Hum.rec.anlog 18 unit SQ AMI #0 01/12/16 02/10/17 History [Lantus Solostar] Albuterol HFA Inhaler [Ventolin 1 puff INH BID PRN 02/10/17 02/10/17 History Hfa 90 mcg/actuation] Clopidogrel Bisulfate [Clopidogrel] 75 mg PO DAILY 02/10/17 02/10/17 History Ferrous Sulfate [Iron] 325 mg PO DAILY 02/10/17 02/10/17 History Metformin [Glucophage] 500 mg PO BIDWM 02/10/17 02/10/17 History Metoprolol Tartrate [Lopressor] 50 mg PO WB 02/10/17 02/10/17 History Multivitamin [One Daily] 1 tab PO DAILY 02/10/17 02/10/17 History [place]-3/Dha/Epa/Fish Oil [Fish Oil 1,000 mg PO DAILY 02/10/17 02/10/17 History 1,000 mg Softgel] Ondansetron HCl [Zofran] 4 mg PO TID PRN 02/10/17 02/10/17 History Pantoprazole Tab [Protonix Tab] 1 tab PO ACB 02/10/17 02/10/17 History Sucralfate [Carafate] 1 gm PO QID PRN 02/10/17 02/10/17 History Swizzle Solution 5Ml 5 ml PO QID PRN 02/10/17 02/10/17 History [Lidocaine/Maalox/Benadryl Soln] Aspirin [Adult Low Dose Aspirin EC] 81 mg PO HS 02/11/17 02/11/17 History Allergies Allergy/AdvReac Type Severity Reaction Status Date / Time No Known Allergies Allergy Verified 02/10/17 18:24 Exam Vital Signs: Temperature 98.2 F 02/10/17 21:30 Pulse Rate 84 02/10/17 21:30 Respiratory Rate 15 02/10/17 21:30 Blood Pressure 165/75 H 02/10/17 21:30 Pulse Oximetry 98 02/10/17 21:30 Telemetry Rhythm: Sinus Rhythm, First Degree AV Block Height/Weight/BMI: Height 5 ft 9 in Weight 71.2 kg Body Mass Index 23.1 - Constitutional Present: no acute distress - Routine HEENT Exam Head: Present: normocephalic, atraumatic Eye: Present: EOMI, PERRL ENT: Present: mucous membranes moist - Routine Neck Exam Present: supple, full ROM. Absent: JVD - Routine Chest/Breast/Axilla Exam Chest wall: Absent: tenderness - Routine Respiratory Exam Present: CTA bilaterally. Absent: respiratory distress - Routine Cardiovascular Exam Present: RRR, no murmur - Routine Abdominal Exam Present: soft, normoactive bowel sounds, tenderness (Minimal RUQ/Epi TTP without rebound or guarding) - Routine Extremities Exam Present: pulses intact. Absent: cyanosis, clubbing, edema - Routine Skin Exam Absent: cyanosis, rash - Routine Neurological Exam Present: alert, oriented X3, CN II-XII intact - Routine Psychiatric Exam Present: normal affect (Somewhat vague on symptoms and timing, noted discrepency with ER report) Results - Labs CBC & Chem 7: 02/10/17 18:47 02/10/17 18:47 Assessment and Plan (1) Cholelithiasis Current visit: Yes Status: Acute (2) Diabetes Current visit: Yes Status: Acute (3) Hypertension Current visit: Yes Status: Acute (4) CAD (coronary artery disease) Current visit: Yes Status: Acute (5) Cholelithiasis and acute cholecystitis without obstruction Current visit: Yes Status: Acute Assessment and Plan: Mr. Saha is placed in observation status after consultation with general surgery in the emergency department. By report, CT scan showed no biliary obstruction or evidence of cholecystitis. His complaints may be as much related to reflux as biliary colic, but he appears to be on maximal medical therapy for this already. Apparently he has had EGD in the recent past with no significant findings. He may benefit from laparoscopic cholecystectomy, he has fair exercise tolerance and reports a negative cardiac stress test about 6 months ago. However, he is on Plavix, which he last took yesterday morning, and elective cholecystectomy might be more prudent 3-5 days after holding this medication. Appreciate general surgical input in the morning. I have continued his other home medications, holding his morning insulin with nothing by mouth status pending surgical evaluation. Further symptomatic supportive and diagnostic cares will be provided as the current workup, or changes in his clinical scenario indicated. Plan of care was discussed with the patient at the time of my evaluation with his present and they expressed understanding and desired to proceed. DVT Prophylaxis: SCD's GI Prophylaxis: Protonix Resuscitation Status: Full Code - Physician Narrative Physician: Mary Jo Pérez MD Narrative: Date: 02/11/17 Time: 1100 Dr. Hou's note reviewed. Mr. Saha interviewed and examined. Supplemental history is provided by his . CC: Chest pain/reflux HPI: Mr. Saha is an 86-year-old male with known history of GERD and cholelithiasis. He reports having increased heartburn for several months with intermittent episodes initially increasing to every other day for the past 2-4 weeks by the treated with Protonix and ranitidine. He was seen by a provider in [place] last week and started on sucralfate syrup qid and swizzle but symptoms have continued to worsen. Yesterday morning pain started after eating eggs for breakfast. Onset of pain was almost immediate and lasted for hours. He describes this as the worst episode of pain he's had. There was associated nausea but no emesis. He had one episode with associated vomiting but has nausea occasionally. He denies dyspnea, radiation of pain, fevers, chills, or sweats. Patient is vague historically but indicates this is not the same as his cardiac pain was previously. Pain is located substernally and he is aware reflux with onset of the pain. Spicy foods tend to trigger symptoms more bland foods. CT the emergency room demonstrated a contracted gallbladder with multiple layering gallstones possible that the gallbladder wall but no ductal dilatation liver enzymes; troponin and EKG were unremarkable. He is hospitalized for stabilization and surgical consultation with possible cholecystectomy. Of note patient has significant cardiac history and is on Plavix with last dose 2 days ago. Last cardiac stent was placed several years ago. PH/SH/FH: agree with that recorded above by Dr. 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 He has no history of illicit drug use. Father age 73 of cardiovascular disease and had prior stroke, Mother at 76 prior diabetes. Patient primary care physician is Dr. Arnold, he would like his or daughter to make decisions for him if he is unable to do so, and he is a full code. ROS: 10 point review completed and as described by Dr. Hou with additions of chronic hearing loss, recent cold/cough, and chronic nerve pain/phantom pain right thumb. 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 Troponin <0.012 x 2; twelve-lead EKG reviewed by myself demonstrating normal sinus rhythm with first-degree AV block, LAD, LAFB, poor R-wave progression possible old septal HI; no acute ST/T-wave changes. Chest x-ray also reviewed by myself-unremarkable. CT abdomen/pelvis reviewed by myself and discussed with Dr. 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 Rdz who subsequently evaluated the patient and learned that patient discontinued his PPI/H2 garcia when he started sucralfate. Symptoms largely reflux related. At present plan resumption of usual reflux medications with addition of sucralfate and swizzle and reassess symptoms. Patient to follow-up with GI for follow-up endoscopy which is overdue. In his family will discuss possible need for elective cholecystectomy at a later date. Would need to be off Plavix for a week for laparoscopic procedure and thus cannot be done at this time. Through liquids initiated, provided patient tolerates liquids anticipate discharge later today. Hospital Course Summary Disclaimer: The visit summary below is not to be considered part of the above Progress Note.
[2017-02-10] MEDS: NS 1,000 ML IV SCH (23:18)
[2017-02-10 23:40] VITALS: RESP 16
[2017-02-11] MEDS ORDERED: DEXTROSE 50% INJ 50ml VIAL IV ONE ×2 (06:19→07:41)
[2017-02-11] MEDS ORDERED: PANTOPRAZOLE 40 MG TABLET PO SCH (06:30)
[2017-02-11 07:08] VITALS: BP 127/63; TEMP 98.3; O2SAT 97
[2017-02-11] MEDS ORDERED: DEXTROSE 50% SYRINGE 50ml (1 AMP) IVP PRN (07:37)
[2017-02-11] MEDS: INSULIN ASPART 100unit/ml INJECTION SQ SCH ×2 (07:47→12:48)
[2017-02-11] MEDS ORDERED: FERROUS SULFATE 324 MG TABLET PO SCH (08:00)
[2017-02-11] MEDS ORDERED: OMEGA-3 ACID ESTERS 1 GM CAPSULE PO SCH (09:00)
[2017-02-11] MEDS ORDERED: MULTI-VITAMIN PLAIN TABLET PO SCH (09:00)
[2017-02-11] MEDS: NS 1,000 ML IV SCH (09:23)
[2017-02-11 14:12] VITALS: PULSE 60
--- NOTE | 2017-02-11 15:35 | Discharge Summary ---
Discharge Information Date of admission: 02/10/17 21:20 Anticipated date of discharge: 02/11/17 Attending Physician: Mary Jo Pérez MD Primary care physician: Nathan Arnold DO Consults: Consulting Provider: Quentin Rdz Reason For Exam: Cholelithiasis, abdominal pain - Discharge Diagnosis (1) GERD (gastroesophageal reflux disease) Status: Acute (2) Cholelithiasis Status: Chronic (3) Diabetes Status: Chronic (4) Hypertension Status: Chronic (5) CAD (coronary artery disease) Status: Chronic - Laboratory Labs: White count 7.8, hemoglobin 10.9, creatinine 1.1, liver enzymes normal - Radiology Radiology: CT of the abdomen and pelvis obtained in the emergency room demonstrated cholelithiasis with possible gallbladder wall thickening of the gallbladder was not distended and there was no ductal dilatation. Chest x-ray was unremarkable by my review-report pending History of Present Illness HPI: Delvis is an 86-year-old diabetic patient of with a history of coronary artery disease status post bypass 4 in 1991 with 4 stents placed since then, who presented to the emergency department this evening with complaints of abdominal pain. As noted by the emergency room, he is a somewhat challenging historian but it sounds like he has had intermittent epigastric abdominal pain for 2 years, which as been worse for 2 weeks. He apparently told the ER provider that he ate an egg this morning and did not have any pain, but he indicated to me that he had a lot of pain about an hour after breakfast today. He stated that he feels like he is having heartburn, but he has been on proton pump inhibition, H2 garcia, and Carafate, with a lidocaine swish and swallow as well. He reported to me that the pain is worse with spicy foods. Workup in the emergency department was essentially reassuring, CT scan revealed cholelithiasis without evidence of obstruction or cholecystitis. The case was discussed with Dr. Ayoub, who suggested the patient could be admitted by the hospitalist service or sent home to follow-up in clinic on Saturday. The patient and his requested to stay for further evaluation and management. Hospital Course This is a general summary of the patient's hospital course. For more details refer to the complete medical record. Hospital course: GERD Cholelithiasis +/-Biliary colic CAD Diabetes mellitus, type II HTN CLL with chronic anemia CVID Hospital course Plans reviewed with Dr. Rdz on 02/11 who subsequently evaluated the patient and learned that patient discontinued his PPI/H2 garcia when he started sucralfate. Symptoms largely reflux related and gallstones, while present, are not clearly associated with recurrent symptoms. Given that patient is on Plavix 1 week washout time will be needed before elective surgery can be considered which precludes surgery at this time. At present will plan resumption of PPI/H2 garcia with addition of sucralfate and swizzle and reassess symptoms. Patient to follow-up with GI for follow-up endoscopy which is overdue. He and his family will discuss possible need for elective cholecystectomy at a later date. Would need to be off Plavix for a week for laparoscopic procedure. Patient tolerated clear liquids prior to discharge and was advised to stay on a bland, diabetic diet avoiding spicy or fatty foods. He was also advised that Protonix and ranitidine can be increased to twice a day dosing if symptoms persist. Patient is asked to follow up with Dr. Arnold in approximately 1 week. Discharge Plan - Med Rec/Dispo Referrals/Follow Up: Nathan Arnold DO [Family Provider] - 1 Week JULIANNA PEREZ JR, MD, MPH [Physician Nonstaff] - (Call to schedule EGD) Kate[place] Instructions: Biliary Colic (GEN), Gastroesophageal Reflux Disease (DC) Prescriptions: Continue Vit C/Vit E/Lutein/Min/[place]-3 [Ocuvite Softgel] 1 cap PO DAILY #0 Simvastatin 20 mg PO HS #0 Insulin Glargine,Hum.rec.anlog [Lantus] 6 unit SQ HS #0 Insulin Aspart [NovoLOG] 12 unit SQ TIDWM #0 raNITIdine HCl [Zantac] 150 mg PO HS #30 tab Sucralfate [Carafate] 1 gm PO QID PRN PRN Reason: Prn Orders Albuterol HFA Inhaler [Ventolin Hfa 90 mcg/actuation] 1 puff INH BID PRN PRN Reason: Prn Orders [place]-3/Dha/Epa/Fish Oil [Fish Oil 1,000 mg Softgel] 1,000 mg PO DAILY Ferrous Sulfate [Iron] 325 mg PO DAILY Multivitamin [One Daily] 1 tab PO DAILY Metformin [Glucophage] 500 mg PO BIDWM Pantoprazole Tab [Protonix Tab] 1 tab PO ACB Metoprolol Tartrate [Lopressor] 50 mg PO WB Clopidogrel Bisulfate [Clopidogrel] 75 mg PO DAILY Aspirin [Adult Low Dose Aspirin EC] 81 mg PO HS Insulin Glargine,Hum.rec.anlog [Lantus Solostar] 18 unit SQ AMI #0 Swizzle Solution 5Ml [Lidocaine/Maalox/Benadryl Soln] 5 ml PO QID PRN PRN Reason: Prn Orders Ondansetron HCl [Zofran] 4 mg PO TID PRN PRN Reason: Nausea - Disposition 01 Discharged Home, Self-Care - Dismissal Complete Discharge Instructions are:: Complete
--- NOTE | 2017-02-11 17:36 | CT Scan Report ---
Indication: epigastric pain PROCEDURE: CT abdomen pelvis w con: Encounter: Initial Comparison: CT chest, abdomen and pelvis dated August 19, 2015 Technique: Axial CT images were performed through the abdomen and pelvis after the administration of intravenous contrast. Coronal and sagittal two-dimensional reformats. Automated Exposure Control and Iterative Reconstruction dose reducing techniques were utilized. Contrast: Omnipaque 300 89 mL Findings: Minor fibrosis in the lung bases. The liver is normal. Multiple small gallstones in the gallbladder. The spleen is normal. Small hiatal hernia. The pancreas is severely atrophic and fatty replaced. The adrenal glands are normal. Kidneys are normal. Scattered arterial atherosclerotic plaque. Density in the right anterior abdominal fat could represent subcutaneous hematoma or injection site. Bladder is decompressed. Sigmoid diverticulosis without evidence of acute diverticulitis. No evidence of a bowel obstruction. The appendix is normal. Bone windows show multiple small lucencies seen in the pelvis and spine as noted on prior studies. Impression: Cholelithiasis without other CT evidence of acute cholecystitis. Otherwise no acute disease process seen. There is a preliminary report by [facility]. .
[2017-02-11] MEDS ORDERED: RANITIDINE 150 MG TABLET PO SCH (21:00)
[2017-02-11] MEDS ORDERED: SIMVASTATIN 20 MG TABLET PO SCH (21:00)
[2017-02-11] MEDS ORDERED: INSULIN GLARGINE 100unit/ml INJECTION SQ SCH (21:00)
--- NOTE | 2017-02-12 08:36 | XRay Report ---
INDICATION: Preop PROCEDURE: CHEST 2-VIEWS UPRIGHT (PA & LAT) Encounter: Initial COMPARISON: January 12, 2016 FINDINGS: The lungs are clear without evidence of focal abnormal airspace opacity. There is no pleural effusion or pneumothorax. Poststernotomy changes are present. The heart size, mediastinal contours and pulmonary vascularity are within normal limits. There is no significant skeletal abnormality. IMPRESSION: No acute cardiopulmonary disease. .
--- NOTE | 2017-02-12 08:48 | Consultation ---
DATE OF CONSULTATION 02/12/2016 CONSULTING PHYSICIAN Quentin Rdz MD REQUESTING PHYSICIAN Dr. Zane Hou REASON FOR CONSULTATION Cholelithiasis, abdominal pain. IMPRESSION 1. Cholelithiasis. 2. Right upper quadrant abdominal pain. 3. Gastroesophageal reflux disease - uncontrolled. He has not been taking his medications as prescribed since he thought that two new medications prescribed on 02/07/2017 were to replace his pantoprazole and ranitidine. 4. Coronary artery disease status post CABG and coronary stenting. 5. Daily use of Plavix. RECOMMENDATIONS 1. I had been misinformed by the emergency department that the patient was not taking Plavix when in fact he has been taking Plavix and has had doses within the last week. Given the current use of Plavix, he is not a candidate for elective cholecystectomy. He will need to be off of his Plavix for at least 7 days prior to procedure. 2. I did review the patient's gastroesophageal reflux disease treatment regimen with him and his . He needs to restart his pantoprazole and ranitidine and continue the swizzle solution and the Carafate as additional therapy instead of replacement therapy. 3. He is due for repeat EGD but this was to be a 6-month follow-up by Dr. Bermudez in [place]. 4. If his heartburn symptoms, which caused him to come to the emergency department, do not improve with his full medical regimen for his GERD, then he could contact the office and schedule cholecystectomy. If the patient and his do discuss the situation again with their daughter (nurse practitioner) and it is felt that he has enough symptoms to warrant cholecystectomy in their minds, then the patient could also call and schedule his operation. 5. He will need cardiac clearance from Dr. Apodaca prior to the elective procedure. He reportedly had a stress test in the spring which was okay. 6. He will need to be off of his Plavix for a week prior to the procedure. HISTORY OF PRESENT ILLNESS Delvis is an 86-year-old male who is known to my surgical practice from a robotic right inguinal hernia repair on 09/22/2014. He came into the emergency department last evening due to heartburn. He says that he has had problems with heartburn for the last couple of years. He was taking Protonix and ranitidine on a daily basis for quite some time now. On , 02/07/2017, the patient was evaluated by Dr. Samm Badillo who prescribed swizzle solution and Carafate. This was supposed to be to supplement his GERD treatment , but the patient stopped taking his Protonix and ranitidine when he started the two new medications. The patient's reflux symptoms were worsening on Saturday and Saturday but they started on Saturday morning and had continued until the evening. This led to his ER evaluation. He noted that he had been belching more and that it had been foul tasting for the last number of days. The patient also reports some right upper quadrant abdominal pain on questioning. He has had this pain for the last year. He says that the pain is not getting any better or worse. He will have pain consistently any time he palpates the right upper quadrant along the costal margin. He rates the pain 3- 4/10 in severity with palpation. He describes it more as a soreness but sometimes it is a little sharp. He has not noticed any relationship to meals. The patient was evaluated in the emergency department and history was difficult to obtain since the patient is a poor historian and his recollection of symptoms was difficult to track. PAST MEDICAL HISTORY 1. Coronary artery disease status post CABG in 1991 and multiple coronary stent placements. He follows with Dr. Jennifer Apodaca and last had a stress test in the spring. 2. Lymphoma. 3. 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 Nevarez is his marketing reporting analyst/oncologist. 4. Gastroesophageal reflux disease. 5. Skin cancer. 6. Myocardial infarction - 1991. 7. Type 2 diabetes mellitus. 8. Asthma. PAST SURGICAL HISTORY 1. CABG x 4 - 1991. 2. 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 3. Coronary artery stent placement - 2004, 2007, 2010. 4. Left knee replacement - 2008. 5. Colonoscopy with polypectomy - 12/16/[address] Jon. The patient had a tubular adenoma with low grade dysplasia removed. 6. Robotic right inguinal hernia repair and incidental umbilical hernia repair - 09/22/[address] Rdz. 7. EGD with esophageal biopsies and gastric polypectomy - 08/04/[address] Live. 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 8. EGD - approximately 05/[address] Bermudez in [place], [place]. The procedure was reportedly normal but a 6-month recheck was recommended. ALLERGIES No known drug allergies. MEDICATIONS The patient's home medications were reviewed. See the admission medical reconciliation. The patient is in fact on Plavix daily. He also reported that he took 81 mg aspirin daily but this had not been entered into the system. SOCIAL HISTORY The patient is . He and his had a son who is now . They also have an adopted daughter who works as a nurse practitioner in [place], [place]. He is retired and previously did maintenance work. He denies any history of tobacco, alcohol or illicit drug use. FAMILY HISTORY Father () - stroke, hypertension. Mother () - Parkinson's. Son () - Pancreatic cancer. REVIEW OF SYSTEMS 10 point review of systems was negative except for history of present illness and the following. HEENT: The patient is hard of hearing. RESPIRATORY: The patient had a recent cold but has recovered from this. He has not used his inhaler in the last months. MUSCULOSKELETAL: He reports muscle pain in his lower back which is chronic. ENDOCRINE: He is a diabetic and on insulin. HEMATOLOGIC: The patient does use aspirin and Plavix daily. PHYSICAL EXAMINATION VITAL SIGNS: Temperature 98.3, pulse 102, blood pressure 127/63, respiratory rate 16, oxygen saturation 97% on room air. GENERAL: The patient is awake and alert. He is in no acute distress. HEENT: Sclerae clear. Extraocular muscles intact. NECK: Supple with a midline trachea. No lymphadenopathy or thyromegaly are noted. HEART: Regular rate and rhythm. LUNGS: Clear to auscultation bilaterally. ABDOMEN: Soft, minimally tender in the right upper quadrant. There is no guarding or rebound noted. No masses are noted. The patient has a negative Reis sign. EXTREMITIES: No clubbing, cyanosis or edema. He does have a partially amputated right thumb that is well-healed. NEURO: Cranial nerves II-XII are grossly intact. PSYCHIATRIC: Normal mood and affect. LABORATORY DATA White blood cell count on admission was 7.8. Platelet count was 162. Liver enzymes and total bilirubin were normal. IMAGING CT scan of the abdomen and pelvis was personally reviewed by me. There were gallstones in the gallbladder which was slightly contracted. There was no evidence of fat stranding around the gallbladder. PATIENT EDUCATION The details, risks and benefits of cholecystectomy were discussed with the patient and his who was present. The discussion included, but was not limited to, bleeding (higher risk of bleeding given Plavix and contraindication to elective procedure given Plavix), infection, injury to intraabdominal contents, injury to the common bile duct, possible need for conversion to an open procedure, possible retained common bile duct stones requiring additional intervention, possible cardiac events, and complications of anesthesia. Following discussion he did not have any questions regarding the surgical risks. LENO
== END 2017-02-11 14:45 | disposition home or self-care (01) ==
LOC: SRG 18:18 → ED 18:18 → SUATTDRO 21:20 → SRG 21:24
PROVIDERS: ADMIT Internal Medicine; ATTEND Internal Medicine